=== PATIENT | female | born 1970 | race Caucasian/White ===

== ENCOUNTER 2020-12-06 09:56 | Outpatient (REF) | payer SELFPAY ==
[2020-12-06 11:23] LABS: MANUAL DIFF FLAG NO
[2020-12-06 11:32] LABS: Basophils Absolute Auto 0.1 X10*3/uL (0.0-0.2); Basophils Percent Auto 1.3 % (0-2); Eosinophils Absolute Auto 0.3 X10*3/uL (0.0-0.4); Eosinophils Percent Auto 6.7 % (0-4); Hematocrit 42.4 % (37-47); Hemoglobin 13.9 g/dl (12.0-16.0); Imm Gran Abs Auto 0.01 X10*3/uL (0.00-0.03); Imm Gran Pct Auto 0.3 % (0.0-0.4); Lymphocytes Absolute Auto 1.6 X10*3/uL (1.2-4.9); Lymphocytes Percent Auto 42.6 % (20-40); Mean Corpuscular HGB Conc 32.8 g/dl (31.0-35.0); Mean Corpuscular Hemoglobin 30.9 pg (27.0-33.0); Mean Corpuscular Volume 94.2 fL (80-98); Mean Platelet Volume 12.6 fL (9.4-12.3); Monocytes Absolute Auto 0.3 X10*3/uL (0.1-1.2); Monocytes Percent Auto 9.1 % (2-11); Neutrophils Absolute Auto 1.5 X10*3/uL (2.0-8.3); Platelet Count 169 X10*3/uL (160-400); Red Cell Distribution Width 11.8 % (11.0-16.0); White Blood Count 3.7 X10*3/uL (4.8-10.8)
[2020-12-06 11:47] LABS: Alanine Aminotransferase 23 U/L (0-31); Albumin Level 4.4 g/dL (3.5-5.0); Alkaline Phosphatase 51 U/L (39-117); Anion Gap 12 (12-20); Aspartate Amino Transferase 25 U/L (5-31); Bilirubin Total 0.4 mg/dL (0.0-1.0); Blood Urea Nitrogen 23 mg/dL (9-16); Calcium 9.3 mg/dL (8.4-10.2); Carbon Dioxide 30 mmol/L (22-29); Chloride 103 mmol/L (96-108); Cholesterol 249 mg/dL; Estimated Glomerular Filt Rate > 60; Glucose Fasting 101 mg/dL (60-99); HDL Cholesterol 77 mg/dL; LDL Cholesterol Calculated 162 mg/dl; Sodium 140 mmol/L (135-145); Total Protein 7.3 g/dL (6.5-8.0); Triglycerides 52 mg/dL
[2020-12-06 12:11] LABS: TSH reflex Free T4 1.09 mIU/mL (0.32-4.0); Vitamin D 25-OH Total 47.1 ng/mL (>30)
== END 2020-12-06 09:57 | disposition home or self-care (01) ==
LOC: HO.HMGCLDS 09:56
PROVIDERS: PCP Internal Medicine; Visit Provider Internal Medicine
DX: Z00.00 Encounter for general adult medical examination without abnormal findings (principal); D12.6 Benign neoplasm of colon, unspecified; Z78.0 Asymptomatic menopausal state
CPT/HCPCS: 36415; 80053; 80061; 82306; 84443; 85025

== ENCOUNTER → 2021-01-03 10:48 | Outpatient (BNVA) | payer BC, SELFPAY | PROVIDERS: PCP Internal Medicine; Visit Provider Advanced Practice Midwife ==

== ENCOUNTER 2021-06-04 14:16 | Outpatient (REF) | payer BC, SELFPAY ==
--- NOTE | ~2021-06-04 | MM_ITS ---
EXAMINATION: MM SCREENING DIGITAL BREAST TOMOSYNTHESIS, BILATERAL CLINICAL INFORMATION: Screening. Asymptomatic. COMPARISON: Mammography: This study is compared with prior exams dating back to 2019. TECHNIQUE: Digital breast tomosynthesis is performed in both the craniocaudal and mediolateral oblique views along with computer-aided detection (CAD). Synthesized 2D images are generated from the tomosynthesis. FINDINGS: The breasts are heterogeneously dense, which may obscure small masses (ACR BI-RADS breast composition Category c). There are no significant masses, abnormal calcifications, or other abnormalities. MM/MM tomosynthesis screening BI IMPRESSION: No mammographic evidence of malignancy. ASSESSMENT: BI-RADS BI-RADS 1 - Negative RECOMMENDATION: Routine annual mammography screening. 1 year F/U This examination should not preclude the clinical evaluation of a suspicious palpable abnormality. This patient's information was entered into a reminder system with a target due date for their next mammogram. Electronically signed by: Maria Isabel Smith MD 07/22/2024 03:53 PM EDT
--- NOTE | ~2021-06-04 | MM_ITS ---
EXAMINATION: MM SCREENING DIGITAL BREAST TOMOSYNTHESIS, BILATERAL CLINICAL INFORMATION: Screening. Asymptomatic. The lifetime risk of breast cancer based on the Tyrer-Cuzick Model is 11%. COMPARISON: Mammography: 05/04/2020, 04/28/2019, 04/21/2018 TECHNIQUE: Digital breast tomosynthesis is performed in both the craniocaudal and mediolateral oblique views along with computer-aided detection (CAD). Synthesized 2D images are generated from the tomosynthesis. FINDINGS: There are scattered areas of fibroglandular density (ACR BI-RADS breast composition Category b). There are no significant masses, abnormal calcifications, or other abnormalities. There are scattered punctate calcifications again noted in both breasts. The axilla and skin contours are unremarkable. No developing density. No significant changes. MM/MM tomosynthesis screening BI IMPRESSION: No mammographic evidence of malignancy. ASSESSMENT: BI-RADS 2: Benign RECOMMENDATION: Routine annual mammography screening. This patient's information was entered into a reminder system with a target due date for their next mammogram.
== END 2021-06-04 14:17 | disposition home or self-care (01) ==
LOC: HO.MAMMO 14:16
PROVIDERS: Visit Provider Internal Medicine
DX: Z12.31 Encounter for screening mammogram for malignant neoplasm of breast (principal)
CPT/HCPCS: 77063; 77067

== ENCOUNTER 2021-06-06 15:35 | Outpatient (REF) | payer BC, SELFPAY ==
--- NOTE | ~2021-06-06 | XR_ITS ---
EXAMINATION: XR FOOT, RIGHT CLINICAL INFORMATION: M79.89 - Other specified soft tissue disorders COMPARISON: None TECHNIQUE: AP, lateral, and oblique views of the right foot. FINDINGS: There is no visible acute or healing fracture, dislocation, destructive process. Bony mineralization appears normal. There is no focal joint narrowing or erosive change. Suspect incidental ossicle at tarsometatarsal region lateral view with fine corticated margins. AP view demonstrates a valgus of approximately 30 degrees with mild medial bunion. There is bifid medial sesamoid. XR/XR foot RT min 3V IMPRESSION: 1. No acute or healing fracture, dislocation, or arthropathy. 2. Hallux valgus first MTP. Medial bunion.
== END 2021-06-06 15:36 | disposition home or self-care (01) ==
LOC: HO.HMGCX 15:35
PROVIDERS: PCP Internal Medicine; Visit Provider Nurse Practitioner Family
DX: M79.89 Other specified soft tissue disorders (principal)
CPT/HCPCS: 73630

== ENCOUNTER 2021-07-23 16:01 | Emergency (ER) | payer BC, SELFPAY ==
--- NOTE | ~2021-07-23 | XR_ITS ---
EXAMINATION: XR FOOT, RIGHT CLINICAL INFORMATION: Swelling of great toe COMPARISON: 06/06/2021 TECHNIQUE: AP, lateral, and oblique views of the right foot. FINDINGS: Bones are in normal anatomic alignment with no acute fracture or dislocation. Mild degenerative changes at the first MTP joint similar to the 06/06/2021 study. No acute fracture or dislocation. Prominent soft tissue swelling along the dorsal aspect of the forefoot. XR/XR foot RT 2V IMPRESSION: Prominent soft tissue swelling along the dorsal aspect of the forefoot but no definitive acute fracture or dislocation.
[2021-07-23 16:54] VITALS: BP 146/72; PULSE 75; RESP 20; TEMP 37.1; O2SAT 100; BMI 27.3
--- NOTE | 2021-07-23 18:33 | ED.SKABFB ---
HPI - Skin/Abscess/Foreign Bdy General Chief complaint: Skin/Abscess/Foreign Body Stated complaint: foot infection Time Seen by Provider: 07/23/21 18:33 Source: patient Mode of arrival: ambulatory Limitations: no limitations History of Present Illness HPI narrative: Patient with no significant past medical history notice redness and swelling of the rightfoot started from the left greater toe 3 - 4 days ago , had small pimple about 6 weeks ago but for last 3 days it has increased in size with increased redness spreading to the dorsum of the left foot also patient had low-grade fever at home. No calf pain no history of cellulitis in that area before no open wounds no pain in the toenail. Patient to chloroquine and Ivermactin as prophylaxis for COVID in last 2 days Related Data Home Medications Medication Instructions Recorded Confirmed B-complex with vitamin C 1 tab PO DAILY 12/06/20 ascorbic acid (vitamin C) 500 mg mg PO 12/06/20 capsule cholecalciferol (vitamin D3) 50 50 mcg PO DAILY 12/06/20 mcg (2,000 unit) capsule loratadine 10 mg tablet (Claritin) 10 mg PO DAILY 12/06/20 magnesium 250 mg tablet 250 mg PO DAILY 12/06/20 melatonin 5 mg capsule mg PO 12/06/20 multivitamin 1 tab PO DAILY 12/06/20 Previous Rx's Medication Instructions Recorded cephalexin 500 mg capsule 500 mg PO QID 10 Days #40 cap 07/23/21 doxycycline hyclate 100 mg tablet 100 mg PO BID #20 tab 07/23/21 Allergies Allergy/AdvReac Type Severity Reaction Status Date / Time raw peas Allergy Unknown hives Uncoded 05/15/20 00:00 Review of Systems Review of Systems: Yes all other systems are reviewed and are negative [facility] Past Medical History Medical History Tubular adenoma of colon Uterine fibroid Surgical History Colon polyps History of oral surgery Hx of colonoscopy Family History Family History Father High cholesterol Myocardial infarction Mother Non-melanoma skin cancer High cholesterol Brother Schizophrenia Maternal Grandfather Myocardial infarction Daughter No problems noted. Daughter No problems noted. Daughter No problems noted. Social History Social History Alcohol intake: never Patient Tobacco Use Status: Never used Tobacco Use of substances other than those prescribed or required for medical reasons: No Advance Directives: No Advance Directives Information Provided: No Physical Exam Vital Signs: Vital Signs: Last Vital Signs Temp 98.1 F 07/23/21 20:08 Pulse 58 07/23/21 20:08 Resp 18 07/23/21 20:08 BP 122/71 07/23/21 20:08 Pulse Ox 100 07/23/21 20:08 Body Mass Index 27.3 Const: General: well developed and alert Orientation/consciousness: patient oriented x3 HENMT: Head: Yes normocephalic Eyes: General: appearance normal, both eyes and all related structures Neck: Neck: Yes full ROM Resp: Effort & Inspection: normal respiratory effort Auscultation: clear to auscultation bilaterally Cardio: Palpation: normal PMI Rate: regular rate Rhythm: regular rhythm Heart sounds: S1 normal heart sound present and S2 normal heart sound present Peripheral pulses: Peripheral pulses 2+ throughout GI: Inspection: Yes normal to inspection Palpation (GI): Soft to palpation and nontender Skin: General skin exam: erythema (Left foot) Neuro: General: patient oriented x3 Extrem: Ankle/foot/toe images: 1. Swelling of the greater toe with erythema spreading mother to dorsum neurovascular intact MDM - Skin/Abscess/Foreign Bdy MDM Narrative Medical decision making narrative: Patient has cellulitis of right foot without any skin breakdown x-ray negative for any deep infection will discharge patient home on doxycycline and cephalexin patient received IV Ancef in the ER Differential Diagnosis Differential diagnosis: Likely cellulitis Lab Data Attestation: I reviewed the patient's lab results. Result diagrams: 07/23/21 19:06 07/23/21 19:06 Labs: Lab Results 07/23/21 07/23/21 07/23/21 Range/Units 19:06 19:06 19:06 WBC 4.4 L (4.8-10.8) X10*3/uL RBC 4.45 (4.20-5.50) X10*6/uL Hgb 14.0 (12.0-16.0) g/dl Hct 41.5 (37-47) % MCV 93.3 (80-98) fL MCH 31.5 (27.0-33.0) pg MCHC 33.7 (31.0-35.0) g/dl RDW 12.2 (11.0-16.0) % Plt Count 177 (160-400) X10*3/uL MPV 10.9 (9.4-12.3) fL Immature Gran % (Auto) 0.2 (0.0-0.4) % Neut % (Auto) 53.1 (45-73) % Lymph % (Auto) 29.3 (20-40) % Turner % (Auto) 9.6 (2-11) % Eos % (Auto) 7.1 H (0-4) % Baso % (Auto) 0.7 (0-2) % Lymph # (Auto) 1.3 (1.2-4.9) X10*3/uL Turner # (Auto) 0.4 (0.1-1.2) X10*3/uL Eos # (Auto) 0.3 (0.0-0.4) X10*3/uL Baso # (Auto) 0.0 (0.0-0.2) X10*3/uL Abs Immat Gran (auto) 0.01 (0.00-0.03) X10*3/uL Absolute Neuts (auto) 2.3 (2.0-8.3) X10*3/uL Absolute Nucleated RBC 0.000 (0.0-0.012) X10*3/uL Nucleated RBC % (auto) 0.0 (0.0-0.2) /100WBC Sodium 142 (135-145) mmol/L Potassium 4.2 (3.3-5.1) mmol/L Chloride 104 (96-108) mmol/L Carbon Dioxide 30 H (22-29) mmol/L Anion Gap 12 (12-20) BUN 16 (9-16) mg/dL Creatinine 0.88 (0.5-1.4) mg/dL Estim Creat Clear Calc 73.6 Estimated GFR > 60 Random Glucose 97 (60-115) mg/dL Lactic Acid 0.9 (0.5-2.0) mmol/L Uric Acid (2.4-5.7) mg/dL Calcium 9.7 (8.4-10.2) mg/dL 07/23/21 Range/Units 19:06 WBC (4.8-10.8) X10*3/uL RBC (4.20-5.50) X10*6/uL Hgb (12.0-16.0) g/dl Hct (37-47) % MCV (80-98) fL MCH (27.0-33.0) pg MCHC (31.0-35.0) g/dl RDW (11.0-16.0) % Plt Count (160-400) X10*3/uL MPV (9.4-12.3) fL Immature Gran % (Auto) (0.0-0.4) % Neut % (Auto) (45-73) % Lymph % (Auto) (20-40) % Turner % (Auto) (2-11) % Eos % (Auto) (0-4) % Baso % (Auto) (0-2) % Lymph # (Auto) (1.2-4.9) X10*3/uL Turner # (Auto) (0.1-1.2) X10*3/uL Eos # (Auto) (0.0-0.4) X10*3/uL Baso # (Auto) (0.0-0.2) X10*3/uL Abs Immat Gran (auto) (0.00-0.03) X10*3/uL Absolute Neuts (auto) (2.0-8.3) X10*3/uL Absolute Nucleated RBC (0.0-0.012) X10*3/uL Nucleated RBC % (auto) (0.0-0.2) /100WBC Sodium (135-145) mmol/L Potassium (3.3-5.1) mmol/L Chloride (96-108) mmol/L Carbon Dioxide (22-29) mmol/L Anion Gap (12-20) BUN (9-16) mg/dL Creatinine (0.5-1.4) mg/dL Estim Creat Clear Calc Estimated GFR Random Glucose (60-115) mg/dL Lactic Acid (0.5-2.0) mmol/L Uric Acid 2.7 (2.4-5.7) mg/dL Calcium (8.4-10.2) mg/dL Discharge Plan Discharge Clinical Impression: Cellulitis of foot, right Patient Disposition: Home, Self-Care Instructions: Cellulitis (ED) Additional Instructions: Take antibiotic as prescribed Keep the foot elevated Report to the ER/PCP if worsening of the redness/fever Prescriptions: New cephalexin 500 mg capsule 500 mg PO QID 10 Days Qty: 40 RF: 0 doxycycline hyclate 100 mg tablet 100 mg PO BID Qty: 20 RF: 0 No Action loratadine [Claritin] 10 mg tablet 10 mg PO DAILY RF: 0 B-complex with vitamin C Tablet 1 tab PO DAILY RF: 0 ascorbic acid (vitamin C) 500 mg capsule PO RF: 0 multivitamin Tablet 1 tab PO DAILY RF: 0 cholecalciferol (vitamin D3) 50 mcg (2,000 unit) capsule 50 mcg PO DAILY RF: 0 melatonin 5 mg capsule PO RF: 0 magnesium 250 mg tablet 250 mg PO DAILY RF: 0
[2021-07-23 18:38] VITALS: BP 130/77; PULSE 66; RESP 16; O2SAT 98
[2021-07-23 19:14] LABS: Basophils Percent Auto 0.7 % (0-2); Eosinophils Absolute Auto 0.3 X10*3/uL (0.0-0.4); Eosinophils Percent Auto 7.1 % (0-4); Hematocrit 41.5 % (37-47); Imm Gran Abs Auto 0.01 X10*3/uL (0.00-0.03); Imm Gran Pct Auto 0.2 % (0.0-0.4); Lymphocytes Absolute Auto 1.3 X10*3/uL (1.2-4.9); Lymphocytes Percent Auto 29.3 % (20-40); MANUAL DIFF FLAG NO; Mean Corpuscular HGB Conc 33.7 g/dl (31.0-35.0); Mean Corpuscular Hemoglobin 31.5 pg (27.0-33.0); Mean Corpuscular Volume 93.3 fL (80-98); Mean Platelet Volume 10.9 fL (9.4-12.3); Monocytes Absolute Auto 0.4 X10*3/uL (0.1-1.2); Monocytes Percent Auto 9.6 % (2-11); Neutrophils Absolute Auto 2.3 X10*3/uL (2.0-8.3); Neutrophils Percent Auto 53.1 % (45-73); Platelet Count 177 X10*3/uL (160-400); Red Blood Count 4.45 X10*6/uL (4.20-5.50); Red Cell Distribution Width 12.2 % (11.0-16.0); White Blood Count 4.4 X10*3/uL (4.8-10.8)
[2021-07-23 19:22] LABS: Lactic Acid 0.9 mmol/L (0.5-2.0)
[2021-07-23 19:29] LABS: Anion Gap 12 (12-20); Blood Urea Nitrogen 16 mg/dL (9-16); Calcium 9.7 mg/dL (8.4-10.2); Carbon Dioxide 30 mmol/L (22-29); Chloride 104 mmol/L (96-108); Creatinine Clr Calc Pharmacy 73.6; Estimated Glomerular Filt Rate > 60; Glucose Random 97 mg/dL (60-115); Potassium 4.2 mmol/L (3.3-5.1); Sodium 142 mmol/L (135-145)
[2021-07-23 19:30] LABS: Uric Acid 2.7 mg/dL (2.4-5.7)
[2021-07-23 20:08] VITALS: BP 122/71; PULSE 58; RESP 18; TEMP 36.7; O2SAT 100
== END 2021-07-23 21:27 | disposition home or self-care (01) ==
PROVIDERS: Emergency Provider Internal Medicine; PCP Internal Medicine
DX: L03.115 Cellulitis of right lower limb (principal)
CPT/HCPCS: 36415; 73620; 80048; 83605; 84550; 85025; 87040; 87076; 87185; 87205; 96365; 99284; J0690

== ENCOUNTER 2021-08-04 06:00 | Emergency (ER) | payer BC, SELFPAY ==
[2021-08-04 06:06] VITALS: BP 140/73; PULSE 70; RESP 18; TEMP 36.1; O2SAT 100; BMI 27.4
--- NOTE | 2021-08-04 06:37 | ED_ITS ---
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) Symptoms since prior visit: improved Context: called for positive culture result Associated symptoms: none Treatments prior to arrival: given antibiotics on (07/23 cephalexin, doxy) Related Data Home Medications Medication Instructions Recorded Confirmed B-complex with vitamin C 1 tab PO DAILY 12/06/20 07/26/21 ascorbic acid (vitamin C) 500 mg mg PO 12/06/20 07/26/21 capsule loratadine 10 mg tablet (Claritin) 10 mg PO DAILY 12/06/20 07/26/21 magnesium 250 mg tablet 250 mg PO DAILY 12/06/20 07/26/21 melatonin 5 mg capsule mg PO 12/06/20 07/26/21 multivitamin 1 tab PO DAILY 12/06/20 07/26/21 cholecalciferol (vitamin D3) 50 100 mcg PO DAILY cap 07/26/21 07/26/21 mcg (2,000 unit) capsule Previous Rx's Medication Instructions Recorded cephalexin 500 mg capsule 500 mg PO QID 10 Days #40 cap 07/23/21 doxycycline hyclate 100 mg tablet 100 mg PO BID #20 tab 07/23/21 metronidazole 500 mg tablet 500 mg PO BID 7 Days #14 tab 08/04/21 (Flagyl) Allergies Allergy/AdvReac Type Severity Reaction Status Date / Time raw peas Allergy Unknown hives Uncoded 05/15/20 00:00 Review of Systems Review of Systems: Constitutional : No Weight loss, No Fever, No Chills, No Fatigue, No Malaise ENT/Mouth : No sore throat, No Rhinorrhea Eyes: No Eye Pain, No Swelling, No Redness Cardiovascular : No Chest Pain, No SOB, No Dyspnea on Exertion, No Orthopnea, No Edema, No Palpitations Respiratory : No Cough, No Sputum, No Wheezing Gastrointestinal : No Nausea, No Vomiting, No Diarrhea, No Constipation, No abdominal Pain, No Hematochezia, No Melena Genitourinary : No Dysuria, No Urinary Frequency, No Hematuria, Musculoskeletal : No joint pain, No Myalgias, No Joint Swelling Skin : No Skin Lesions, mild faint red rash Neuro : No Weakness, No Numbness, No Dizziness, No Headache Psych : No Anxiety/Panic, No Depression Heme/Lymph: No Bruising, No Bleeding,No Lymphadenopathy Endocrine : No Polyuria, No Polydipsia All other systems reviewed and are negative PMFSH Past Medical History Attestation statement: The following information was validated with the patient. Medical History History of onychomycosis Tubular adenoma of colon Uterine fibroid Surgical History Colon polyps History of oral surgery Hx of colonoscopy Family History Family History Father High cholesterol Myocardial infarction Mother Non-melanoma skin cancer High cholesterol Brother Schizophrenia Maternal Grandfather Myocardial infarction Daughter No problems noted. Daughter No problems noted. Daughter No problems noted. Unknown No problems noted. Social History Social History Housing: House Alcohol intake: never Patient Tobacco Use Status: Never used Tobacco Advance Directives: No Patient : No service: No Current occupational status: employed Physical Exam Vital Signs: Vital Signs: Last Vital Signs Temp 96.9 F 08/04/21 06:06 Pulse 70 08/04/21 06:06 Resp 18 08/04/21 06:06 BP 140/73 H 08/04/21 06:06 Pulse Ox 100 08/04/21 06:06 Body Mass Index 27.4 Appearance: Alert. Oriented X3. No acute distress. Eyes: Pupils equal, round and reactive to light. ENT: Pharynx normal. Neck: Normal inspection. Neck supple. CVS: Normal heart rate and rhythm. Pulses normal. Respiratory: No respiratory distress. Breath sounds normal. Abdomen: Soft and non-tender. Skin: Skin warm and dry. Normal skin color. R foot slight pink color no warmth no ttp, mild swelling top of great toe and into top of 1st MTP but no pain Extremities: No lower extremity edema. Neuro: Oriented X 3. No motor deficit. No sensory deficit. 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 Her culture is 12 days out. 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
[2021-08-04 07:01] LABS: Basophils Percent Auto 1.3 % (0-2); Eosinophils Absolute Auto 0.3 X10*3/uL (0.0-0.4); Eosinophils Percent Auto 9.7 % (0-4); Hematocrit 36.9 % (37-47); Hemoglobin 12.8 g/dl (12.0-16.0); Lymphocytes Absolute Auto 1.6 X10*3/uL (1.2-4.9); Lymphocytes Percent Auto 50.2 % (20-40); MANUAL DIFF FLAG SCAN; Mean Corpuscular HGB Conc 34.7 g/dl (31.0-35.0); Mean Corpuscular Hemoglobin 31.4 pg (27.0-33.0); Mean Corpuscular Volume 90.4 fL (80-98); Mean Platelet Volume 11.3 fL (9.4-12.3); Monocytes Absolute Auto 0.3 X10*3/uL (0.1-1.2); Monocytes Percent Auto 8.4 % (2-11); Neutrophils Absolute Auto 0.9 X10*3/uL (2.0-8.3); Neutrophils Percent Auto 30.4 % (45-73); Platelet Count 217 X10*3/uL (160-400); Red Blood Count 4.08 X10*6/uL (4.20-5.50); Red Cell Distribution Width 11.9 % (11.0-16.0); SCAN SMEAR FLAG 1; White Blood Count 3.1 X10*3/uL (4.8-10.8)
[2021-08-04 07:21] LABS: Anion Gap 10 (12-20); Blood Urea Nitrogen 16 mg/dL (9-16); Calcium 9.3 mg/dL (8.4-10.2); Carbon Dioxide 28 mmol/L (22-29); Chloride 106 mmol/L (96-108); Creatinine Clr Calc Pharmacy 75.5; Estimated Glomerular Filt Rate > 60; Glucose Random 107 mg/dL (60-115); Potassium 4.2 mmol/L (3.3-5.1); Sodium 140 mmol/L (135-145)
[2021-08-04] MEDS: metroNIDAZOLE 500 MG TABLET PO (07:30)
[2021-08-04 07:46] LABS: SLIDE REVIEW VERIFIED
== END 2021-08-04 07:36 | disposition home or self-care (01) ==
PROVIDERS: Emergency Provider Emergency Medicine; PCP Internal Medicine
DX: L03.115 Cellulitis of right lower limb (principal); R79.89 Other specified abnormal findings of blood chemistry; Z79.899 Other long term (current) drug therapy
CPT/HCPCS: 36415; 80048; 85025; 87040; 99283; 99284

== ENCOUNTER → 2022-01-10 08:01 | Outpatient (BNVA) | payer BC, SELFPAY | PROVIDERS: PCP Internal Medicine; Visit Provider Advanced Practice Midwife ==

== ENCOUNTER 2022-06-10 08:12 | Outpatient (REF) | payer BC, SELFPAY ==
--- NOTE | ~2022-06-10 | MM_ITS ---
EXAMINATION: MM SCREENING DIGITAL BREAST TOMOSYNTHESIS, BILATERAL CLINICAL INFORMATION: Screening. Asymptomatic. The lifetime risk of breast cancer based on the Tyrer-Cuzick Model is 11%. COMPARISON: Mammography: 06/04/2021, 05/04/2020, 04/28/2019 TECHNIQUE: Digital breast tomosynthesis is performed in both the craniocaudal and mediolateral oblique views along with computer-aided detection (CAD). Synthesized 2D images are generated from the tomosynthesis. FINDINGS: There are scattered areas of fibroglandular density (ACR BI-RADS breast composition Category b). There are scattered punctate calcifications and some coarse or round calcifications again seen in both breasts similar in number and distribution, predominantly upper outer quadrants. The axilla and skin contours are unremarkable. Left breast shows no interval mass or architectural abnormality or developing density. Right CC tomography shows scalloping asymmetric density under 1 cm outer quadrant 5 cm from nipple without MLO correlate. This may suggest incompletely compressed glandular tissue or summation artifact. Patient will be recalled for additional imaging. MM/MM tomosynthesis screening BI IMPRESSION: Right: -Asymmetric density on right CC tomography outer quadrant without MLO correlate, possibly completely compressed glandular tissue or summation artifact. Left: -No mammographic evidence of malignancy. ASSESSMENT: BI-RADS 0: Incomplete - Need Additional Imaging Evaluation RECOMMENDATION: 1. Additional views of the right breast (spot CC, rolled CC x2). 2. Targeted ultrasound if warranted after review of the additional views. 3. Radiology department staff will contact the patient for additional imaging. This patient's information was entered into a reminder system with a target due date for their next mammogram.
== END 2022-06-10 08:13 | disposition home or self-care (01) ==
LOC: HO.MAMMO 08:12
PROVIDERS: PCP Internal Medicine; Visit Provider Internal Medicine
DX: Z12.31 Encounter for screening mammogram for malignant neoplasm of breast (principal)
CPT/HCPCS: 77063; 77067

== ENCOUNTER 2022-06-18 15:03 | Outpatient (REF) | payer BC, SELFPAY ==
--- NOTE | ~2022-06-18 | MM_ITS ---
EXAMINATION: MM DIAGNOSTIC DIGITAL BREAST TOMOSYNTHESIS, RIGHT CLINICAL INFORMATION: Recall from screening for asymmetric density outer breast on CC view, suspect incompletely compressed glandular tissue or summation artifact. COMPARISON: Mammography: 06/10/2022, 06/04/2021, 07/04/2020, 04/28/2019 TECHNIQUE: Digital breast tomosynthesis is performed. 2D images are generated from the tomosynthesis. The following views are obtained: Spot CC, rolled CC x2. FINDINGS: There are scattered areas of fibroglandular density (ACR BI-RADS breast composition Category b). The additional views show no persistent asymmetric density. There is no mass or architectural abnormality in the targeted area. Results are discussed with the patient at time of visit. MM/MM tomosynthesis added views R IMPRESSION: Additional views show no persistent asymmetric density or other changes from prior studies. ASSESSMENT: BI-RADS 1: Negative RECOMMENDATION: Routine annual mammography screening. This patient's information was entered into a reminder system with a target due date for their next mammogram.
== END 2022-06-18 15:04 | disposition home or self-care (01) ==
LOC: HO.MAMMO 15:03
PROVIDERS: PCP Internal Medicine; Visit Provider Internal Medicine
DX: R92.2 Inconclusive mammogram (principal)
CPT/HCPCS: 77061; 77065

== ENCOUNTER 2022-10-15 08:57 | Outpatient (REF) | payer BC, SELFPAY ==
[2022-10-15 11:36] LABS: MANUAL DIFF FLAG NO
[2022-10-15 11:55] LABS: Basophils Absolute Auto 0.1 X10*3/uL (0.0-0.2); Basophils Percent Auto 1.2 % (0-2); Eosinophils Absolute Auto 0.2 X10*3/uL (0.0-0.4); Eosinophils Percent Auto 5.2 % (0-4); Hematocrit 41.9 % (37.0-47.0); Hemoglobin 13.8 g/dl (12.0-16.0); Imm Gran Abs Auto 0.01 X10*3/uL (0.00-0.03); Imm Gran Pct Auto 0.2 % (0.0-0.4); Lymphocytes Absolute Auto 1.4 X10*3/uL (1.2-4.9); Lymphocytes Percent Auto 32.8 % (20-40); Mean Corpuscular HGB Conc 32.9 g/dl (31.0-35.0); Mean Corpuscular Hemoglobin 30.7 pg (27.0-33.0); Mean Corpuscular Volume 93.3 fL (80.0-98.0); Mean Platelet Volume 12.4 fL (9.4-12.3); Monocytes Absolute Auto 0.3 X10*3/uL (0.1-1.2); Monocytes Percent Auto 6.4 % (2-11); Neutrophils Absolute Auto 2.3 x10*3/uL (2.0-8.3); Neutrophils Percent Auto 54.2 % (45-73); Platelet Count 199 X10*3/uL (160-400); Red Blood Count 4.49 X10*6/uL (4.20-5.50); White Blood Count 4.2 X10*3/uL (4.8-10.8)
[2022-10-15 12:26] LABS: Alanine Aminotransferase 17 U/L (0-31); Anion Gap 14 (12-20); Aspartate Amino Transferase 23 U/L (5-31); Blood Urea Nitrogen 24 mg/dL (9-16); Calcium 9.7 mg/dL (8.4-10.2); Carbon Dioxide 28 mmol/L (22-29); Chloride 105 mmol/L (96-108); Estimated Glomerular Filt Rate > 60; Glucose Fasting 94 mg/dL (60-99); Magnesium 2.3 mg/dL (1.6-2.6); Potassium 4.7 mmol/L (3.3-5.1); Sodium 142 mmol/L (135-145)
[2022-10-15 12:33] LABS: TSH reflex Free T4 1.13 uIU/mL (0.32-4.0); Vitamin D 25-OH Total 60.7 ng/mL (>30)
[2022-10-15 15:41] LABS: Vitamin B12 654 pg/mL (200-900)
[2022-10-15 15:51] LABS: Folate 11.6 ng/mL (> or = 4.0)
== END 2022-10-15 08:58 | disposition home or self-care (01) ==
LOC: HO.HMGCLDS 08:57
PROVIDERS: PCP Internal Medicine; Visit Provider Internal Medicine
DX: Z00.01 Encounter for general adult medical examination with abnormal findings (principal); D12.6 Benign neoplasm of colon, unspecified; R00.2 Palpitations
CPT/HCPCS: 36415; 80048; 82306; 82607; 82746; 83735; 84443; 84450; 84460; 85025

== ENCOUNTER → 2022-11-12 10:31 | Outpatient (BNVA) | payer BC, SELFPAY | PROVIDERS: PCP Internal Medicine; Visit Provider Nurse Practitioner | DX: D12.6 Benign neoplasm of colon, unspecified (principal) ==

== ENCOUNTER 2022-12-13 02:25 | Emergency (ER) | payer BC, SELFPAY ==
[2022-12-13 02:31] VITALS: BP 134/71; PULSE 76; RESP 18; TEMP 36.5; O2SAT 100; BMI 27.8
--- NOTE | 2022-12-13 02:46 | ED_ITS ---
HPI - Extremity Problem General Chief complaint: Extremity Problem Stated complaint: Toe Infection Time Seen by Provider: 12/13/22 02:44 Source: patient Mode of arrival: ambulatory Limitations: no limitations History of Present Illness HPI Narrative: Patient complaining of redness and warmth of the right greater toe since last night history of same 1 year ago when she was diagnosed cellulitis no recent pedicure no fever no chills patient not IV headache no open wound no joint pain no history of gout Related Data Home Medications Medication Instructions Recorded Confirmed B-complex with vitamin C 1 tab PO DAILY 12/06/20 07/26/21 ascorbic acid (vitamin C) 500 mg mg PO 12/06/20 07/26/21 capsule magnesium 250 mg tablet 250 mg PO DAILY 12/06/20 07/26/21 cholecalciferol (vitamin D3) 50 100 mcg PO DAILY 07/26/21 07/26/21 mcg (2,000 unit) capsule turmeric 400 mg capsule mg PO 01/10/22 loratadine 10 mg tablet (Claritin) 10 mg PO DAILY PRN 11/12/22 magnesium chloride 70 mg 250 mg PO DAILY 11/12/22 (magnesium chloride) tablet,delayed release quercetin 500 mg capsule 500 mg PO DAILY PRN 11/12/22 Previous Rx's Medication Instructions Recorded bisacodyl 5 mg tablet,delayed 10 mg PO ONCE 1 day #2 tabs 10/23/22 release (Dulcolax (bisacodyl)) polyethylene glycol 3350 17 238 g PO ONCE 1 day #238 grams 10/23/22 gram/dose oral powder (Miralax) cephalexin 500 mg capsule 500 mg PO QID 10 days #40 caps 12/13/22 doxycycline hyclate 100 mg tablet 100 mg PO BID #20 tabs 12/13/22 Allergies Allergy/AdvReac Type Severity Reaction Status Date / Time raw peas Allergy Unknown hives Uncoded 10/15/22 08:35 Review of Systems Review of Systems: Yes all other systems are reviewed and are negative PMFSH Past Medical History Medical History History of onychomycosis Immunization refused Tubular adenoma of colon Uterine fibroid Surgical History History of oral surgery Hx of colonoscopy Family History Family History Father High cholesterol Myocardial infarction Mother Non-melanoma skin cancer High cholesterol Brother Schizophrenia Maternal Grandfather Myocardial infarction Daughter No problems noted. Daughter No problems noted. Daughter No problems noted. Unknown No problems noted. Social History Social History Housing: House Alcohol intake: never Patient Tobacco Use Status: Never used Tobacco e-Cigarette/Vaping Use: Never Used Advance Directives: No Advance Directives Information Provided: No service: No Current occupational status: employed Cognitive needs: No Hearing needs: No Vision needs: Yes Physical Exam Vital Signs: Vital Signs: Last Vital Signs Temp 97.7 F 12/13/22 02:31 Pulse 76 12/13/22 02:31 Resp 18 12/13/22 02:31 BP 134/71 12/13/22 02:31 Pulse Ox 100 12/13/22 02:31 O2 Del Method 12/13/22 02:31 BMI result Body Mass Index 27.8 Extrem: Ankle/foot/toe images: 1. Erythema warmth of right greater toe spreading to the dorsum of the foot no open wound Medications Administered Discontinued Medications Generic Name Dose Route Start Last Admin Trade Name Freq PRN Reason Stop Dose Admin Cephalexin HCl 500 mg 12/13/22 02:54 12/13/22 02:59 Cephalexin 500 Mg Capsule PO 12/13/22 02:55 500 mg ONCE ONE Administration Doxycycline Monohydrate 100 mg 12/13/22 02:54 12/13/22 02:59 Doxycycline Monohydrate 100 Mg Capsule PO 12/13/22 02:55 100 mg ONCE ONE Administration Medical Decision Making Medical Decision Making [facility] Narrative: Patient uncomplicated cellulitis of the right greater toe will discharge patient home on doxycycline and Keflex advised to report to the ER if worsening of the redness Discharge Plan Discharge Clinical Impression: Cellulitis Patient Disposition: Home, Self-Care Instructions: Cellulitis (ED) Additional Instructions: Care as advised Take antibiotic as prescribed Report to the ER if redness gets worse/fever/pain Prescriptions: New cephalexin 500 mg capsule 500 mg PO QID 10 Days Qty: 40 0RF doxycycline hyclate 100 mg tablet 100 mg PO BID Qty: 20 0RF No Action bisacodyl [Dulcolax (bisacodyl)] 5 mg tablet,delayed release (DR/EC) 10 mg PO ONCE 1 Days Qty: 2 0RF Rx Instructions: take orally as directed prior to colonoscopy polyethylene glycol 3350 [Miralax] 17 gram/dose powder 238 g PO ONCE 1 Days Qty: 238 0RF Rx Instructions: take orally as directed prior to colonoscopy B-complex with vitamin C Tablet 1 tab PO DAILY ascorbic acid (vitamin C) 500 mg capsule PO magnesium 250 mg tablet 250 mg PO DAILY cholecalciferol (vitamin D3) 50 mcg (2,000 unit) capsule 100 mcg PO DAILY loratadine [Claritin] 10 mg tablet 10 mg PO DAILY PRN turmeric 400 mg capsule PO magnesium chloride 70 mg tablet,delayed release (DR/EC) 250 mg PO DAILY quercetin 500 mg capsule 500 mg PO DAILY PRN Interventions: ED Discharge Assessment Last Done: 12/13/22 03:10 Discharge Date/Time: 12/13/22 03:10
[2022-12-13] MEDS: Doxycycline Monohydrate 100 MG CAPSULE PO (02:59)
[2022-12-13] MEDS: cephALEXin 500 MG CAPSULE PO (02:59)
--- NOTE | 2022-12-13 03:09 | PC.NURSE ---
Pt aox4 in no apparent distress. Discharge instructions reviewed with pt. Pt verbalizes understanding.
== END 2022-12-13 03:10 | disposition home or self-care (01) ==
PROVIDERS: Emergency Provider Internal Medicine; PCP Internal Medicine
DX: L03.031 Cellulitis of right toe (principal)
CPT/HCPCS: 99283

== ENCOUNTER 2022-12-18 14:48 | Emergency (ER) | payer BC, SELFPAY ==
[2022-12-18 14:52] VITALS: BP 102/48; PULSE 96; RESP 18; TEMP 36.6; O2SAT 98; BMI 27.4
--- NOTE | 2022-12-18 14:52 | ED.SKABFB ---
HPI - Skin/Abscess/Foreign Bdy General Chief complaint: General Medical Stated complaint: Cellulitis-not feeling well Time Seen by Provider: 12/18/22 16:51 Source: patient Mode of arrival: ambulatory Limitations: no limitations History of Present Illness HPI narrative: 51-year-old female seen here on December 13 for right foot cellulitis does started on cephalexin and doxycycline returns here to the emergency room with concern for diarrhea, fatigue which began overnight. Patient also reports mild upset stomach. No nausea, vomiting, fever. Patient feels like cellulitis on her foot is actually much better since taking the antibiotics. Related Data Home Medications Medication Instructions Recorded Confirmed B-complex with vitamin C 1 tab PO DAILY 12/06/20 07/26/21 ascorbic acid (vitamin C) 500 mg mg PO 12/06/20 07/26/21 capsule magnesium 250 mg tablet 250 mg PO DAILY 12/06/20 07/26/21 cholecalciferol (vitamin D3) 50 100 mcg PO DAILY 07/26/21 07/26/21 mcg (2,000 unit) capsule turmeric 400 mg capsule mg PO 01/10/22 loratadine 10 mg tablet (Claritin) 10 mg PO DAILY PRN 11/12/22 magnesium chloride 70 mg 250 mg PO DAILY 11/12/22 (magnesium chloride) tablet,delayed release quercetin 500 mg capsule 500 mg PO DAILY PRN 11/12/22 Previous Rx's Medication Instructions Recorded bisacodyl 5 mg tablet,delayed 10 mg PO ONCE 1 day #2 tabs 10/23/22 release (Dulcolax (bisacodyl)) polyethylene glycol 3350 17 238 g PO ONCE 1 day #238 grams 10/23/22 gram/dose oral powder (Miralax) cephalexin 500 mg capsule 500 mg PO QID 10 days #40 caps 12/13/22 doxycycline hyclate 100 mg tablet 100 mg PO BID #20 tabs 12/13/22 Allergies Allergy/AdvReac Type Severity Reaction Status Date / Time raw peas Allergy Unknown hives Uncoded 10/15/22 08:35 Review of Systems Review of Systems: Yes all other systems are reviewed and are negative Constitutional: Constitutional: Reports no additional constitutional complaints, Denies body ache(s), Denies chills, Reports fatigue, Denies fever(s), Denies headache(s) and Denies weakness Eyes: Eyes: Reports no additional eye complaints and Denies change in vision ENT: Reports system reviewed and no additional complaints, except as documented, Denies dizziness, Denies headache(s), Denies nasal congestion, Denies nasal discharge and Denies neck pain Cardiovascular: Cardiovascular: Reports no additional cardiovascular complaints, Denies chest pain, Denies leg edema and Denies dyspnea Respiratory: Respiratory: Reports no additional respiratory complaints, Denies cough and Denies dyspnea Gastrointestinal: Gastrointestinal: Reports no additional gastrointestinal complaints, Denies abdominal pain, Reports diarrhea, Denies nausea and Denies vomiting Genitourinary: Genitourinary: Reports no additional female genitourinary complaints and Denies urinary incontinence Musculoskeletal: Musculoskeletal: Reports no additional musculoskeletal complaints, Denies back pain, Denies arthralgias, Denies joint swelling, Denies neck pain, Denies numbness and Denies tingling Integumentary/Breasts: Skin/Breast: Reports system reviewed and no additional complaints, except as docu and Denies rash Neurologic: Reports system reviewed and no additional complaints, except as documented, Denies Abnormal speech present, Denies dizziness, Denies headache(s), Denies numbness, Denies tingling and Denies weakness Endocrine: Endocrine: Reports fatigue PMFSH Past Medical History Attestation statement: The following information was validated with the patient. Source: old records reviewed and nursing notes reviewed Medical History History of onychomycosis Immunization refused Tubular adenoma of colon Uterine fibroid Surgical History History of oral surgery Hx of colonoscopy Family History Family History Father High cholesterol Myocardial infarction Mother Non-melanoma skin cancer High cholesterol Brother Schizophrenia Maternal Grandfather Myocardial infarction Daughter No problems noted. Daughter No problems noted. Daughter No problems noted. Unknown No problems noted. Social History Social History Housing: House Alcohol intake: never Patient Tobacco Use Status: Never used Tobacco e-Cigarette/Vaping Use: Never Used Advance Directives: No Advance Directives Information Provided: Yes service: No Current occupational status: employed Cognitive needs: No Hearing needs: No Vision needs: Yes Physical Exam Vital Signs: Vital Signs: Last Vital Signs Temp 97.8 F 12/18/22 16:54 Pulse 82 12/18/22 16:54 Resp 18 12/18/22 16:54 BP 110/74 12/18/22 16:54 Pulse Ox 100 12/18/22 16:54 O2 Del Method 12/18/22 16:54 BMI result Body Mass Index 27.4 Const: General: cooperative, healthy appearing, comfortable and no acute distress Orientation/consciousness: patient oriented x3 Limitations: no limitations HEENT: Head: Yes normal to inspection Ears: hearing grossly normal bilaterally General nose exam: Normal external nose present Face and sinus: Yes normal facial exam Mouth: Normal oral and palatal mucosa present Throat: Yes posterior oropharynx normal Eyes: General: appearance normal, both eyes and all related structures Pupils: Equal, round and reactive pupils present Neck: Neck: Yes normal visual inspection Chest: Chest palpation & inspection: normal inspection of the chest Resp: Effort & Inspection: normal respiratory effort Auscultation: clear to auscultation bilaterally Cardio: Rate: regular rate Rhythm: regular rhythm Peripheral pulses: Peripheral pulses 2+ throughout GI: Inspection: Yes normal to inspection Palpation (GI): Soft to palpation and nontender Auscultation: normal bowel sounds Back/Spine/Pelvis: Thoracic/Lumbar Spine: thoracic and lumbar spine normal to inspection Skin: General skin exam: no rashes or lesions noted Neuro: General: patient oriented x3, no focal motor deficits and normal sensation to monofilament Cranial nerves: Yes Equal, round and reactive pupils present Cognition (Neuro): normal cognition Speech: No Abnormal speech present Gait exam (Neuro): Normal gait present Motor exam (neuro): 5/5 motor strength present throughout Extrem: Other: Right foot with normal appearance. No erythema, warmth. Palpable DP and PT pulses normal. Full range of motion. No tenderness. General: Yes normal to inspection, Yes full ROM and Yes capillary refill normal Course Course Course Narrative: This is a rapid medical exam. Deferred additional HPI, ROS, PE to primary provider. 51 yo female currently on cephalexin/doxycycline since 12/13 for right foot infection. Patient reports early this morning had diarrhea, body aches and malaise and has a history of bacteremia and feels this is similar although the wound itself looks better. Afebrile. VSS. Will obtain labs Reevaluation(s) Reevaluation #1: Labs are unremarkable. Patient has some mild diarrhea and upset stomach but is tolerating p.o. fluids with no difficulty. Likely side effects from taking antibiotics. We recommended taking it with food and probiotic at home. Reviewed worrisome signs/symptoms with patient and when to seek additional care. Comfortable with discharge home. Medical Decision Making Medical Decision Making [facility] Narrative: 51-year-old female who is currently on day 7 of antibiotic treatment for right foot cellulitis who presents with diarrhea, upset stomach and fatigue noted overnight. Patient remarks that the right foot appears much better than previous and has been taking the antibiotics as prescribed. On exam no signs of cellulitis. Patient is concern for bacteremia and she has had this before in the past. She denies any fevers or chills. Will repeat labs today. Triage vitals are normal Differential Diagnosis Differential Diagnoses: The differential diagnosis associated with the presentation includes Cellulitis Low concern for bacteremia as patient is afebrile and infection is improving. Patient nontoxic overall Lab Data [facility] Lab Attestation statement: I reviewed the patient's lab results. 12/18/22 15:50 12/18/22 15:50 Labs: Lab Results 12/18/22 12/18/22 Range/Units 15:50 15:50 WBC 6.0 (4.8-10.8) X10*3/uL RBC 4.65 (4.20-5.50) X10*6/uL Hgb 14.3 (12.0-16.0) g/dl Hct 42.9 (37.0-47.0) % MCV 92.3 (80.0-98.0) fL MCH 30.8 (27.0-33.0) pg MCHC 33.3 (31.0-35.0) g/dl RDW 12.3 (11.0-16.0) % Plt Count 169 (160-400) X10*3/uL MPV 11.5 (9.4-12.3) fL Immature Gran % (Auto) 0.3 (0.0-0.4) % Neut % (Auto) 87.9 H (45-73) % Lymph % (Auto) 5.0 L (20-40) % [place] % (Auto) 3.3 (2-11) % Eos % (Auto) 3.2 (0-4) % Baso % (Auto) 0.3 (0-2) % Lymph # (Auto) 0.3 L (1.2-4.9) X10*3/uL [place] # (Auto) 0.2 (0.1-1.2) X10*3/uL Eos # (Auto) 0.2 (0.0-0.4) X10*3/uL Baso # (Auto) 0.0 (0.0-0.2) X10*3/uL Abs Immat Gran (auto) 0.02 (0.00-0.03) X10*3/uL Absolute Neuts (auto) 5.3 (2.0-8.3) x10*3/uL Absolute Nucleated RBC 0.000 (0.0-0.012) X10*3/uL Nucleated RBC % (auto) 0.0 (0.0-0.2) /100WBC Sodium 137 (135-145) mmol/L Potassium 4.1 (3.3-5.1) mmol/L Chloride 105 (96-108) mmol/L Carbon Dioxide 27 (22-29) mmol/L Anion Gap 9 L (12-20) BUN 23 H (9-16) mg/dL Creatinine 0.80 (0.5-1.4) mg/dL Estim Creat Clear Calc 80.2 Estimated GFR > 60 Random Glucose 118 H (60-115) mg/dL Calcium 9.0 D (8.4-10.2) mg/dL Discharge Plan Discharge Clinical Impression: Cellulitis Patient Disposition: Home, Self-Care Instructions: Cellulitis (ED) Additional Instructions: Continue your antibiotics as prescribed Prescriptions: No Action bisacodyl [Dulcolax (bisacodyl)] 5 mg tablet,delayed release (DR/EC) 10 mg PO ONCE 1 Days Qty: 2 0RF Rx Instructions: take orally as directed prior to colonoscopy polyethylene glycol 3350 [Miralax] 17 gram/dose powder 238 g PO ONCE 1 Days Qty: 238 0RF Rx Instructions: take orally as directed prior to colonoscopy cephalexin 500 mg capsule 500 mg PO QID 10 Days Qty: 40 0RF doxycycline hyclate 100 mg tablet 100 mg PO BID Qty: 20 0RF B-complex with vitamin C Tablet 1 tab PO DAILY ascorbic acid (vitamin C) 500 mg capsule PO magnesium 250 mg tablet 250 mg PO DAILY cholecalciferol (vitamin D3) 50 mcg (2,000 unit) capsule 100 mcg PO DAILY loratadine [Claritin] 10 mg tablet 10 mg PO DAILY PRN turmeric 400 mg capsule PO magnesium chloride 70 mg tablet,delayed release (DR/EC) 250 mg PO DAILY quercetin 500 mg capsule 500 mg PO DAILY PRN Referrals: Kenzie Gonzalez MD [Primary Care Provider] - 1 week Interventions: ED Discharge Assessment Last Done: 12/18/22 17:06 Discharge Date/Time: 12/18/22 17:06
[2022-12-18 15:55] LABS: MANUAL DIFF FLAG NO
[2022-12-18 15:57] LABS: Basophils Percent Auto 0.3 % (0-2); Eosinophils Absolute Auto 0.2 X10*3/uL (0.0-0.4); Eosinophils Percent Auto 3.2 % (0-4); Hematocrit 42.9 % (37.0-47.0); Hemoglobin 14.3 g/dl (12.0-16.0); Imm Gran Abs Auto 0.02 X10*3/uL (0.00-0.03); Imm Gran Pct Auto 0.3 % (0.0-0.4); Lymphocytes Absolute Auto 0.3 X10*3/uL (1.2-4.9); Mean Corpuscular HGB Conc 33.3 g/dl (31.0-35.0); Mean Corpuscular Hemoglobin 30.8 pg (27.0-33.0); Mean Corpuscular Volume 92.3 fL (80.0-98.0); Mean Platelet Volume 11.5 fL (9.4-12.3); Monocytes Absolute Auto 0.2 X10*3/uL (0.1-1.2); Monocytes Percent Auto 3.3 % (2-11); Neutrophils Absolute Auto 5.3 x10*3/uL (2.0-8.3); Neutrophils Percent Auto 87.9 % (45-73); Platelet Count 169 X10*3/uL (160-400); Red Blood Count 4.65 X10*6/uL (4.20-5.50); Red Cell Distribution Width 12.3 % (11.0-16.0)
[2022-12-18 16:15] LABS: Anion Gap 9 (12-20); Blood Urea Nitrogen 23 mg/dL (9-16); Carbon Dioxide 27 mmol/L (22-29); Chloride 105 mmol/L (96-108); Creatinine Clr Calc Pharmacy 80.2; Estimated Glomerular Filt Rate > 60; Glucose Random 118 mg/dL (60-115); Potassium 4.1 mmol/L (3.3-5.1); Sodium 137 mmol/L (135-145)
[2022-12-18 16:54] VITALS: BP 110/74; PULSE 82; RESP 18; TEMP 36.6; O2SAT 100
== END 2022-12-18 17:06 | disposition home or self-care (01) ==
LOC: HO.ED 16:58
PROVIDERS: Nurse Practitioner Family; Emergency Provider Emergency Medicine; PCP Internal Medicine
DX: L03.115 Cellulitis of right lower limb (principal); Z79.899 Other long term (current) drug therapy
CPT/HCPCS: 36415; 80048; 85025; 99282; 99283

== ENCOUNTER 2023-02-17 15:45 | Outpatient (REF) | payer BC, SELFPAY ==
[2023-02-21 05:23] LABS: HPV mRNA E6/E7 rflx Not Detected (Not Detected)
== END 2023-02-17 15:46 | disposition home or self-care (01) ==
LOC: HO.LNP 15:45
PROVIDERS: PCP Internal Medicine; Visit Provider Advanced Practice Midwife
DX: Z01.419 Encounter for gynecological examination (general) (routine) without abnormal findings (principal); Z11.51 Encounter for screening for human papillomavirus (HPV); N95.1 Menopausal and female climacteric states
CPT/HCPCS: 87624; 88142

== ENCOUNTER 2023-03-25 09:57 | Day surgery (SDC) | payer BC, SELFPAY ==
[2023-03-20 15:18] VITALS: BMI 28.1
[2023-03-25 10:10] VITALS: BMI 27.8
[2023-03-25 10:31] VITALS: BP 115/64; PULSE 63; RESP 16; TEMP 36.2; O2SAT 99
[2023-03-25] MEDS: Lactated Ringers 1,000 ML 80 ML IVCONT (10:40)
--- NOTE | 2023-03-25 11:01 | MHC.SHP ---
Pre-Procedural Eval Section A Date of Service: 03/25/23 Section B Chief Complaint: Encounter for screening for malignant neoplasm of Relevant Family History (Specify if Yes): No Relevant Social History: None Present Medications: see Short Stay Collaborative assessment Medical History: Significant History (Tubular adenoma Uterine fibroids History of onchyomycosis) History of Previous Operations: Relevant previous surgery/procedure and date(s) (oral surgery) Allergies: Allergies Allergy/AdvReac Type Severity Reaction Status Date / Time raw peas Allergy Mild Hives Uncoded 03/25/23 10:04 Review of Systems Sugical H&P ROS: Negative: Constitution, Cardiovascular, Respiratory, Neurological, Psychiatric, Hem-Onc, Allergic/Immunologic, Gastrointestinal, Genitourinary, Musculoskeletal, Integumentary, Endocrine and Eyes/Ears/Nose/Throat Exam Surgical H&P Exam: Normal: HEENT, Normal: Heart, Normal: Lungs, Normal: Extremities, Normal: Abdomen, Normal: Skin and Normal: Neurological Plan Diagnosis/Plan: Unchanged I have reviewed the history and physical and performed a pertinent physical examination on my patient. No changes have occurred unless specified. Time Spent With Patient Time: Total time managing care of this patient today ____ minutes.
--- NOTE | 2023-03-25 11:26 | P.CONAN_ITS ---
HPI - Anesthesia Eval Consult details Narrative: 52 F for colonscopy [facility] Active Problems Active Problems: All Active Problems (Updated 12/19/22 @ 00:00 by Isaak Abel) Pre-op chest exam (Acute) Immunization refused (Acute) Encounter for annual routine gynecological examination (Acute) Foot swelling (Acute) Tubular adenoma of colon (Acute) Uterine fibroid (Acute) Past Medical History Medical History History of onychomycosis Immunization refused Tubular adenoma of colon Uterine fibroid Family History Family History Father High cholesterol Myocardial infarction Mother Non-melanoma skin cancer High cholesterol Brother Schizophrenia Maternal Grandfather Myocardial infarction Daughter No problems noted. Daughter No problems noted. Daughter No problems noted. Unknown No problems noted. Family history of problems with anesthesia: No Surgical History Surgical History History of oral surgery Hx of colonoscopy History of Problems with Anesthesia: No Social History Social History Housing: House Alcohol intake: never Patient Tobacco Use Status: Former Tobacco user Tobacco use type: Cigarette Years Smoked: 8 Smoked in Last 30 Days: No e-Cigarette/Vaping Use: Never Used Use of substances other than those prescribed or required for medical reasons: No Are you DNR?: No Advance Directives: No Advance Directives Information Provided: Yes service: No Current occupational status: employed Cognitive needs: No Hearing needs: No Vision needs: Yes Meds Allergies Allergy/AdvReac Type Severity Reaction Status Date / Time raw peas Allergy Mild Hives Uncoded 03/25/23 10:04 Active Medications: Current Medications Lactated Ringer's (Lr) 1,000 mls @ 80 mls/hr IVCONT .[id number] [place] Last Admin: 03/25/23 10:40 Dose: 80 mls/hr Home Medications Medication Instructions Recorded Confirmed Last Taken Type ascorbic acid (vitamin C) 500 mg 500 mg PO DAILY 12/06/20 03/20/23 Unknown History capsule magnesium 250 mg tablet 250 mg PO DAILY 12/06/20 03/20/23 Unknown History cholecalciferol (vitamin D3) 50 100 mcg PO DAILY 07/26/21 03/20/23 Unknown History mcg (2,000 unit) capsule loratadine 10 mg tablet (Claritin) 10 mg PO DAILY PRN Allergy Symptoms 11/12/22 03/20/23 Unknown History arginine 7 gram-glutam 7 1 packet PO DAILY 02/17/23 03/20/23 Unknown History gram-CaHMB 1.5 [id number]-min oral pwd pkt (Mike (with collagen)) melatonin 5 mg capsule 5 mg PO BEDTIME 02/17/23 03/20/23 Unknown History multivitamin 1 tab PO DAILY 03/20/23 03/20/23 Unknown History turmeric 1 cap PO DAILY 03/20/23 03/20/23 Unknown History Exam Exam Date and Time: March 25, 2023 112 Height,Weight and Vital Signs: Height 5 ft 4 in Weight 162 lb Last Vital Signs Temp 97.1 F 03/25/23 10:31 Pulse 63 03/25/23 10:31 Resp 16 03/25/23 10:31 BP 115/64 03/25/23 10:31 Pulse Ox 99 03/25/23 10:31 O2 Del Method Room Air 03/25/23 10:31 Airway Mallampati Class: II TM Dist: >3cm Neck ROM: Full Loose/Missing/Broken Teeth: No Assessment and Plan Assessment Anesthesia Assessment: Anesthesia Plan Discussed Final Anesthetic Review Family History of Problems with Anesthesia: No History of Problems with Anesthesia: No NPO: Yes ASA Class: II Final Preanesthetic Review: No Changes in Pt Med Stat, Meds/Allgs Chart Reviewed, Consent Obtained/Reviewed and Anes Risks/Benef Reviewed Patient Risk: Low Procedure Risk: Low Anesthetic Plan Anesthetic Plan: MAC: Disposition: Standard PACU
--- NOTE | 2023-03-25 11:47 | P.OP_ITS ---
Operative Note Operative Note Date of Service: 03/25/23 Narrative: Operative Information Procedure Description: Colonoscopy Indication: hx of polyps Anesthesia: MAC COLONOSCOPY Instrument: Olympus variable stiffness pediatric scope 190L Colonoscopy Monitoring: Vital signs and clinical assessment, continuous EKG monitoring, Pulse oximetry, Carbon Dioxide monitoring and blood pressure monitoring were done throughout the procedure. Colon withdrawal time was 16 minutes. Procedure: The patient was placed in the left lateral decubitis position and pre-procedure medications were administered. After a digital rectal examination of the ano-rectum, the video colonoscope was inserted into the rectum and advanced through the colon to the cecum/TI. The colonoscope was slowly withdrawn in a retrograde panoramic fashion and the colon mucosa was carefully examined including a retroflexed view of the rectum. Findings and interventions are described below. Procedure Difficulty: easy Findings: Terminal Ileum-normal Cecum: right over appendiceal orifice there was a polypoid lesion 6-8 mm, lifted with eleview and then removed with cold forcep, x 1 clip applied thereafter Ascending Colon: normal Transverse Colon -normal Descending Colon:normal Sigmoid Colon: mild, moderate diverticulosis Rectum: Retroflexion with medium sized internal hemorrhoids, grade I Anorectum - normal Colon preparation: [place] Bowel Preparation Scale Right colon; 3 Transverse colon: 3 Left colon; 3 (0 = Unprepared colon segment with mucosa not seen due to solid stool that cannot be cleared. 1 = Portion of mucosa of the colon segment seen, but other areas of the colon segment not well seen due to staining, residual stool and/or opaque liquid. 2 = Minor amount of residual staining, small fragments of stool and/or opaque liquid, but mucosa of colon segment seen well. 3 = Entire mucosa of colon segment seen well with no residual staining, small fragments of stool or opaque liquid) Impression and Post Procedure Diagnosis: colon polyp internal hemorrhoids diverticulosis Plan: High fiber diet leaflet Avoid straining at stool, epsom salts and sitz bath, anusol supps or cream Repeat Colonoscopy in 5 years if adenomatous, 10 yrs if benign or earlier if clinically indicated Above findings were reviewed with the patient and relevant handouts were provided if indicated.
[2023-03-25 11:54] VITALS: BP 100/50; PULSE 62; RESP 17; TEMP 36.2; O2SAT 97
[2023-03-25 12:09] VITALS: BP 103/56; PULSE 58; RESP 16; TEMP 36.2; O2SAT 100
== END 2023-03-25 13:00 | disposition home or self-care (01) ==
PROVIDERS: PCP Internal Medicine; Visit Provider Internal Medicine Gastroenterology
PROC: 0DJD8ZZ Inspection of Lower Intestinal Tract, Via Natural or Artificial Opening Endoscopic (ICD-10-PCS; CPT 45378; principal; 2023-03-25 11:00)
DX: Z12.11 Encounter for screening for malignant neoplasm of colon (principal); Z86.010 Personal history of colon polyps; K63.5 Polyp of colon; K57.30 Diverticulosis of large intestine without perforation or abscess without bleeding; K64.0 First degree hemorrhoids; D25.9 Leiomyoma of uterus, unspecified; Z79.899 Other long term (current) drug therapy; Z87.891 Personal history of nicotine dependence
CPT/HCPCS: 45380; 45381; 88305

== ENCOUNTER → 2023-04-11 08:27 | Outpatient (BNVA) | payer BC, SELFPAY | PROVIDERS: PCP Internal Medicine; Visit Provider Nurse Practitioner ==

== ENCOUNTER 2023-06-11 12:59 | Outpatient (AMB) | payer BC, SELFPAY ==
--- NOTE | 2023-06-11 13:10 | MHC.PC.OV ---
Vital Signs 06/11/23 13:12 Height 5 ft 4 in Weight 168 lb BMI 28.8 BP 100/72 Blood Pressure Location Rt brachial Position Sitting Pulse 58 Pulse Source Pulse Oximeter Pulse Oximetry (%) 98 Oxygen Delivery Method Room Air Intake Visit Reasons: Knee/ Hip Pain Intake Note: Pt is here today c/o Lt hip and L knee pain no injury noted Post menopausal: Yes Allergies raw peas Allergy (Mild, Uncoded 06/11/23 13:29) Hives Medication List - Last Reconciled 06/11/23 by Kenzie Gonzalez MD cholecalciferol (vitamin D3) 100 mcg PO DAILY loratadine (Claritin) 10 mg PO DAILY PRN magnesium 250 mg PO DAILY melatonin 5 mg PO BEDTIME Tobacco use date assessed: 06/11/23 Dental Screening Dental Screen Date: 06/11/23 Did you have a dental visit in the last 12 months?: Yes Did you have a dental problem in the last 6 months where you did not have access to dental care?: No Was dental information given to patient?: Patient has dentist HPI Knee/ Hip Pain HPI Details 52-year-old lady here today complaining intermittent episodes of pain and stiffness in her left hip and left knee, mainly on the lateral aspect, present now for the last week. Denies any history of falls, no injury or strenuous exertion. Patient thinks that it might be from her new office chair that she is using. Patient denies any interference of above symptoms with her day-to-day activity. [facility] Medical History History of onychomycosis Immunization refused Tubular adenoma of colon Uterine fibroid Surgical History History of oral surgery Hx of colonoscopy Family History Father High cholesterol Myocardial infarction Mother Non-melanoma skin cancer High cholesterol Brother Schizophrenia Maternal Grandfather Myocardial infarction Daughter No problems noted. Daughter No problems noted. Daughter No problems noted. Unknown No problems noted. Social History Housing: House Alcohol intake: never Patient Tobacco Use Status: Former Tobacco user Tobacco use type: Cigarette Years Smoked: 8 e-Cigarette/Vaping Use: Never Used service: No Current occupational status: employed Cognitive needs: No Hearing needs: No Vision needs: Yes Questionnaire Thrive Questionnaire Date Thrive assessed: 06/11/23 I am a: Patient What is your living situation today?: I have a steady place to live Within the past 12 months, did the food you bought not last and you didn't have the money to get more?: Never true Within the past 12 months, did you worry whether your food would run out before you got money to buy more?: Never true Do you have trouble paying for medicines?: No Do you have trouble getting transportation to medical appointments?: No Do you have trouble paying your heating and electricity bill?: No Do you have trouble taking care of your child, family member or friend?: No Do you have trouble with day-to-day activities such as bathing, preparing meals, shopping, managing finances, etc.?: No Are you currently unemployed and looking for a job?: No Are you interested in more education?: No AUDIT C Alcohol Use Questionnaire (AUDIT-C) 1. How often do you have a drink containing alcohol?: Never Total Score: 0 Score Reviewed/Action Taken: Yes LORNE-7 AMB Questionnaire LORNE-7 Date LORNE - 7 assessed: 10/15/22 Source: Developed by Drs. Kevin Moody, Iliana Montanez, Malcolm Garzon and colleagues, with an educational geno from [employer]. Review of Systems Const All systems reviewed & are unremarkable except as noted in HPI and below Denies weakness ENT Denies disequilibrium Musc Denies abnormal gait, Denies numbness and Denies tingling Neuro Denies abnormal gait, Denies focal weakness, Denies numbness, Denies tingling, Denies disequilibrium and Denies weakness Physical exam (Primary Care) Vital Signs: Last Vital Signs Pulse 58 06/11/23 13:12 BP 100/72 06/11/23 13:12 Pulse Ox 98 06/11/23 13:12 Oxygen Delivery Method Room Air 06/11/23 13:12 BMI result Body Mass Index 28.8 Tobacco/Smoking Status: Tobacco use Status Tobacco use date assessed 06/11/23 06/11/23 13:18 Patient Tobacco Use Status Former Tobacco user 06/11/23 13:10 Tobacco use type Cigarette 06/11/23 13:10 e-Cigarette/Vaping Use Never Used 06/11/23 13:10 Thrive Assessment: Date of Thrive Assessment Date Thrive assessed 10/15/22 06/11/23 13:10 Const General: comfortable, no acute distress, alert and awake Orientation/consciousness: patient oriented x3 Neck Neck: Yes full ROM, Yes no lymphadenopathy, Yes trachea midline and Yes supple Thyroid: Thyroid normal Back/Spine/Pelvis Back: No back tenderness Skin General skin exam: no rashes or lesions noted Neuro General: patient oriented x3, gait normal, tone normal, moves all extremities, Normal light touch and pain sensation, no focal motor deficits, CN's II-XI intact bilaterally and normal sensation to monofilament Extrem General: Yes normal to inspection, Yes full ROM, Yes no joint enlargement, Yes no clubbing, cyanosis or edema, Yes no calf tenderness and Yes normal gait Left lower extremity: full ROM, no joint enlargement, hip/thigh Details: tenderness Location: of the hip Location: laterally (Left hip) and normal ROM; no crepitus and knee Details: normal ROM; no tenderness, no swelling, Loren's Test not performed and no crepitus; no edema Assessment and Plan Assessment & Plan (1) Lateral pain of left hip: Code(s): M25.552 - Pain in left hip Plan: Likely bursitis, patient would like to try doing holistic treatment 1st. Advised to do stretching, apply moist heat to affected area, declines refer for physical therapy advised return to clinic if no improvement of symptoms noted Coding Level of Care Code Est Pt Level 3 (62373) Diagnoses Lateral pain of left hip M25.552
[2023-06-11 13:12] VITALS: BP 100/72; PULSE 58; O2SAT 98; BMI 28.8
== END 2023-06-11 14:19 | disposition home or self-care (01) ==
PROVIDERS: PCP Internal Medicine; Visit Provider Internal Medicine
DX: M25.552 Pain in left hip (principal)
CPT/HCPCS: 99213

== ENCOUNTER → 2023-06-16 08:30 | Outpatient (BNV) | payer BC, SELFPAY | PROVIDERS: Visit Provider Radiology Diagnostic Radiology | DX: Z12.31 Encounter for screening mammogram for malignant neoplasm of breast (principal) | CPT/HCPCS: 77063; 77067 ==

== ENCOUNTER 2023-06-16 08:33 | Outpatient (REF) | payer BC, SELFPAY ==
--- NOTE | ~2023-06-16 | MM_ITS ---
EXAMINATION: MM SCREENING DIGITAL BREAST TOMOSYNTHESIS, BILATERAL CLINICAL INFORMATION: Screening. Asymptomatic. The lifetime risk of breast cancer based on the Tyrer-Cuzick Model is 10.3%. COMPARISON: Mammography: This study is compared with prior exams dating back to 2017. TECHNIQUE: Digital breast tomosynthesis is performed in both the craniocaudal and mediolateral oblique views along with computer-aided detection (CAD). Synthesized 2D images are generated from the tomosynthesis. FINDINGS: The breasts are heterogeneously dense, which may obscure small masses (ACR BI-RADS breast composition Category c). There are no significant masses, abnormal calcifications, or other abnormalities. MM/MM tomosynthesis screening BI IMPRESSION: No mammographic evidence of malignancy. ASSESSMENT: BI-RADS BI-RADS 1 - Negative RECOMMENDATION: Routine annual mammography screening. 1 year F/U This examination should not preclude the clinical evaluation of a suspicious palpable abnormality. This patient's information was entered into a reminder system with a target due date for their next mammogram.
== END 2023-06-16 08:34 | disposition home or self-care (01) ==
LOC: HO.MAMMO 08:33
PROVIDERS: Visit Provider Internal Medicine
DX: Z12.31 Encounter for screening mammogram for malignant neoplasm of breast (principal)
CPT/HCPCS: 77063; 77067

== ENCOUNTER 2023-09-04 08:17 | Emergency (ER) | payer BC, SELFPAY ==
--- NOTE | ~2023-09-04 | CT_ITS ---
CT ANGIOGRAM NECK WITH CONTRAST CT ANGIOGRAM BRAIN WITH CONTRAST CLINICAL INFORMATION: Exam numbness, tingling, difficulty word finding. COMPARISON: Head CT performed earlier the same day. TECHNIQUE: Test bolus sequences followed by intravenous administration 70 mL of Omnipaque 350. Helical imaging was performed in the axial plane from the thoracic inlet to the skull vertex. Delayed postcontrast imaging of the head was also performed. The data was processed at the pulmonary function technologist workstation for generation of MIP sequences. Angled MIPs and volume rendered reformatted images were also generated at an offline 3D workstation under concurrent supervision. Stenoses are assessed in accordance with NASCET criteria unless otherwise indicated. This CT examination was performed using dose optimization techniques as appropriate, variously including the following: *Automated exposure control *Adjustment of mA and/or kV according to patient size (this includes techniques or standardized protocols for targeted exams where dose is matched to indication/reason for exam; i.e. 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 [There is no intracranial hemorrhage, hydrocephalus, extra-axial surface collection, midline shift, or other herniation pattern. Fernandes to white matter differentiation is diffusely maintained without evidence of an evolved acute territorial infarct. The basilar cisterns are preserved. No significant soft tissue abnormality. No acute osseous abnormality. There is moderate mucosal thickening within the maxillary sinuses bilaterally and there is mild mucosal thickening within the ethmoid air cells bilaterally. CERVICAL SOFT TISSUES AND LUNG APICES: The imaged upper lungs are clear. There is multilevel cervical spondylosis. There are no significant soft tissue findings. NECK CTA: [There is a classic 3 vessel configuration of the aortic arch. Proximal arch vessels are non-stenotic. The vertebral arteries are codominant. No significant ostial stenosis is visualized on either side. Both vertebral arteries are widely patent throughout their extracranial cervical course. Both common and internal carotid arteries are normal in course and caliber.] BRAIN CTA: [There is normal opacification of major intracranial arteries. No focal flow-limiting stenosis nor discrete proximal large artery occlusion. No aneurysm. Timing of the contrast bolus allows assessment of the major dural venous sinuses, which all opacify normally] CT/CT angio head neck stroke IMPRESSION: - No acute intracranial findings. 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 - No acute arterial occlusions and no significant arterial stenoses within the head or neck. Stroke CTA results discussed with KRISTINE Goncalves at 9:07 AM on 09/04/2023.
--- NOTE | ~2023-09-04 | XR_ITS ---
EXAMINATION: XR CHEST CLINICAL INFORMATION: Shear dizziness COMPARISON: Chest 10/18/2011 TECHNIQUE: 2 views of the chest were obtained. FINDINGS: No significant abnormality is noted involving the heart, lungs, mediastinum, bony thorax or soft tissues. XR/XR chest 2V IMPRESSION: Unremarkable chest examination.
--- NOTE | ~2023-09-04 | CT_ITS ---
EXAMINATION: CT HEAD WITHOUT CONTRAST (STROKE PROTOCOL) CLINICAL INFORMATION: Stroke protocol. Numbness, difficulty word finding. COMPARISON: None available. TECHNIQUE: Contiguous axial imaging was performed from the skull base to vertex without intravenous administration of contrast. This CT examination was performed using dose optimization techniques as appropriate, variously including the following: *Automated exposure control *Adjustment of mA and/or kV according to patient size (this includes techniques or standardized protocols for targeted exams where dose is matched to indication/reason for exam; i.e. extremities or head) *Use of iterative reconstruction technique DLP: 571 mGy-cm FINDINGS: There is no acute intra-axial, extra-axial bleed, masses or midline shift. There is no acute infarction in evolution. There is no edema. The robert to white matter differentiation is maintained normal. The lateral ventricles are symmetrical in size and configuration without enlargement. Bone windows reveal no calvarial abnormality. There is no scalp soft tissue abnormality. Bilateral paranasal sinuses and mastoid air cells are well-aerated. CT/CT head for stroke IMPRESSION: No acute intracranial process seen. This critical result was discussed with Justa Barnes at 8:39 hours on 09/04/2023. It was ascertained that the content and urgency of the report was understood at the time of direct communication.
--- NOTE | 2023-09-04 08:19 | ECG_ITS ---
Test Reason : STROKE Blood Pressure : / mmHG Vent. Rate : 068 BPM Atrial Rate : 068 BPM P-R Int : 124 ms QRS Dur : 076 ms QT Int : 410 ms P-R-T Axes : -01 024 011 degrees QTc Int : 435 ms Normal sinus rhythm RSR' or QR pattern in V1 suggests right ventricular conduction delay Otherwise normal ECG When compared with ECG of 18-OCT-2011 23:55, No significant change was found Referred By: Justa Barnes Electronically Signed By:YUNIER PETERSEN MD
--- NOTE | 2023-09-04 08:19 | ED_ITS ---
HPI - General Adult General Chief complaint: Neuro Symptoms/Deficit Stated complaint: STROKE ALERT,LKWT 7AM,NUMB BODY,FOGGY HEAD Time Seen by Provider: 09/04/23 08:19 Source: patient and EMS Mode of arrival: EMS Limitations: no limitations History of Present Illness HPI narrative: Patient is a 52 year old assigned female at with a history of dyslipidemia presenting to the emergency department today with numbness and difficulty word tracking. Patient states that starting at 0700 she began to have full body numbness / tingling and difficulty word tracking / articulating words. Patient denies any dizziness, lightheadedness, abdominal pain, nausea, vomiting, fever, chills, blurry vision, double vision, loss of vision, chest pain, difficulty breathing, shortness of breath, back pain, night sweats, pain with urination, increased urinary frequency, increased urinary urgency, blood in her urine or stool, syncope or a near syncopal episode, recent trauma or falls, bowel incontinence, bladder incontinence, bowel retention, bladder retention, or any other complaints at this time. Onset (ago): hour(s) (1.5) Relieving factors: none Exacerbating factors: none Associated symptoms: denies other symptoms Treatments prior to arrival: none Related Data Home Medications Medication Instructions Recorded Confirmed magnesium 250 mg tablet 250 mg PO DAILY 12/06/20 03/20/23 cholecalciferol (vitamin D3) 50 100 mcg PO DAILY 07/26/21 03/20/23 mcg (2,000 unit) capsule loratadine 10 mg tablet (Claritin) 10 mg PO DAILY PRN Allergy Symptoms 11/12/22 03/20/23 melatonin 5 mg capsule 5 mg PO BEDTIME 02/17/23 03/20/23 Allergies Allergy/AdvReac Type Severity Reaction Status Date / Time raw peas Allergy Mild Hives Uncoded 06/11/23 13:29 Review of Systems 2 Constitutional: Constitutional: Reports no additional constitutional complaints, Denies chills, Denies fever(s) and Denies night sweats Eyes: Eyes: Reports no additional eye complaints, Denies blurry vision, Denies change in vision, Denies diplopia, Denies eye discharge, Denies loss of vision and Denies eye pain ENT: Denies dizziness Cardiovascular: Cardiovascular: Reports no additional cardiovascular complaints, Denies chest pain, Denies lightheadedness, Denies Loss of Consciousness and Denies dyspnea Respiratory: Respiratory: Reports no additional respiratory complaints and Denies dyspnea Gastrointestinal: Gastrointestinal: Reports no additional gastrointestinal complaints, Denies abdominal pain, Denies melena, Denies hematochezia, Denies change in bowel habits and Denies change in stool character Genitourinary: Genitourinary: Denies hematuria, Denies urinary frequency, Denies dysuria, Denies urinary incontinence, Denies urinary hesitancy and Denies urinary urgency Musculoskeletal: Musculoskeletal: Reports no additional musculoskeletal complaints, Reports numbness and Reports tingling Neurologic: Denies dizziness, Denies loss of vision, Reports numbness and Reports tingling Comments: difficulty word tracking / articulating words Psychiatric: Psychiatric: Reports no additional psychiatric complaints Endocrine: Endocrine: Reports no additional endocrine complaints Hematologic/Lymphatic: Hematologic/Lymphatic: Reports no additional hematologic/lymphatic complaints Allergic/Immunologic: Allergic/Immunologic: Reports no additional allergic/immunologic complaints [facility] Past Medical History Attestation statement: The following information was validated with the patient. Source: old records reviewed and nursing notes reviewed Medical History Pre-op chest exam Encounter for annual routine gynecological examination Dyslipidemia Immunization refused History of onychomycosis Tubular adenoma of colon Uterine fibroid Surgical History Hx of colonoscopy History of oral surgery Family History Family History Father High cholesterol Myocardial infarction Mother Non-melanoma skin cancer High cholesterol Brother Schizophrenia Maternal Grandfather Myocardial infarction Daughter No problems noted. Daughter No problems noted. Daughter No problems noted. Unknown No problems noted. Social History Social History Housing: House Alcohol intake: never Patient Tobacco Use Status: Former Tobacco user Tobacco use type: Cigarette Years Smoked: 8 Smoked in Last 30 Days: No e-Cigarette/Vaping Use: Never Used Use of substances other than those prescribed or required for medical reasons: No Advance Directives: No Patient : No service: No Current occupational status: employed Cognitive needs: No Hearing needs: No Vision needs: Yes Physical Exam ED Vital Signs: Vital Signs - 24 hr 09/04/23 08:46 Temperature 98.1 F Pulse Rate 67 Respiratory Rate 11 L Blood Pressure 122/70 Pulse Oximetry 99 Oxygen Delivery Method Room Air BMI result Body Mass Index 30.7 Const General: cooperative, no acute distress, alert and awake Nutritional Appearance: well nourished Orientation/consciousness: patient oriented x3 Limitations: no limitations HENMT Head: Yes normal to inspection and Yes atraumatic Ears: hearing grossly normal bilaterally and external ears normal General nose exam: Normal external nose present, no nasal discharge noted and no epistaxis Face and sinus: Yes normal facial exam, No abrasion and No laceration Mouth: Normal oral and palatal mucosa present, no drooling and no muffled voice Eyes General: appearance normal, both eyes and all related structures Periorbital: periorbital findings normal Eyelids: Yes eyelids normal Conjunctivae: conjunctivae normal Pupils: Equal, round and reactive pupils present EOM: EOMs intact bilaterally Neck Neck: Yes normal visual inspection, Yes full ROM and Yes no lymphadenopathy Chest Chest palpation & inspection: normal inspection of the chest Resp Effort & Inspection: normal respiratory effort and able to speak in complete sentences Auscultation: clear to auscultation bilaterally Cardio Rate: regular rate Rhythm: regular rhythm GI Inspection: Yes normal to inspection Palpation (GI): Soft to palpation, not firm, nontender and no guarding Neuro General: patient oriented x3 and moves all extremities Cranial nerves: Yes Equal, round and reactive pupils present Cognition (Neuro): normal cognition Motor exam (neuro): 5/5 motor strength present throughout Sensory Exam: Normal double simultaneous stimulation for sensation Coordination: [id number] test normal Extrem General: Yes normal to inspection, Yes full ROM and Yes capillary refill normal Psych Appearance: grossly normal Mental Status: mental status grossly normal Affect: normal affect Attitude: cooperative Thought process: Normal thought process present Thought content: Normal thought content present Insight: Good insight present (Psych) NIH Stroke Scale Internal: Initial- Upon Arrival Time: 08:24 Level of Consciousness: Alert Level of Consciousness Questions: Answers both questions correctly Level of Consciousness Commands: Performs both tasks correctly Best Gaze: Normal Visual: No visual loss Facial Palsy: Normal Motor Arm (Right): No drift Motor Arm (Left): No drift Motor Leg (Right): No drift Motor Leg (Left): No drift Limb Ataxia: Absent Sensory: Normal Best Language: No aphasia Dysarthia: Normal Extinction and Inattention: No abnormality Score: 0 Medications Administered Discontinued Medications Generic Name Dose Route Start Last Admin Trade Name Damian PRN Reason Stop Dose Admin Iohexol 100 ml 09/04/23 08:42 09/04/23 08:43 Iohexol 350 Mg/Ml 100 Ml Infus..Btl IV 09/04/23 08:43 70 ml ONCE ONE Administration Medical Decision Making Medical Decision Making [facility] Narrative: Patient is a 52 year old assigned female at with a history of dyslipidemia presenting to the emergency department today after an episode of feeling off and having trouble word finding. Patient's physical exam was unremarkable. Patient's blood work was unremarkable. Patient's urine showed no acute process. Patient's EKG was unremarkable. Patient's chest x-ray, head CT, and head / neck CTA showed no acute process. Patient's clinical presentation is most consistent with a possible hypoglycemic event given this happened this morning, before the patient had eaten anything, and resolved quickly. Patient's POC glucose was 100. I explained my physical exam findings as well as all test results to the patient. I answered all questions asked by the patient. I stressed the importance of the patient taking [his/her/their] medication as prescribed. I stressed the importance of the patient following up with her primary care provider. I stressed the importance of the patient returning to the emergency department immediately if her symptoms were to worsen or if she were to develop any dizziness, shortness of breath, difficulty breathing, chest pain, blurry vision, loss of vision, nausea, vomiting, abdominal pain, fever, chills, back pain, or any other complaints. Patient verbalized agreement and understanding with this treatment plan and discharge. Differential Diagnosis Differential Diagnoses: The differential diagnosis associated with the presentation includes Paresthesias Hypoglycemia TIA CVA Stroke Admission/Observation Consideration of admission/observation: Escalation of care including admission/observation considered Patient would have been admitted to the hospital had her work up had any findings where hospital admission was appropriate and her clinical presentation warranted hospital admission. Lab Data [facility] Lab Attestation statement: I reviewed the patient's lab results. My interpretation of these studies and their corresponding values is that they are grossly normal. 09/04/23 08:58 09/04/23 08:58 Labs: Lab Results 09/04/23 09/04/23 09/04/23 Range/Units 08:58 08:59 09:02 WBC 4.9 (4.8-10.8) X10*3/uL RBC 4.34 (4.20-5.50) X10*6/uL Hgb 13.4 (12.0-16.0) g/dl Hct 40.5 (37.0-47.0) % MCV 93.3 (80.0-98.0) fL MCH 30.9 (27.0-33.0) pg MCHC 33.1 (31.0-35.0) g/dl RDW 12.0 (11.0-16.0) % Plt Count 186 (160-400) X10*3/uL MPV 11.7 (9.4-12.3) fL Immature Gran % (Auto) 0.2 (0.0-0.4) % Neut % (Auto) 56.3 (45-73) % Lymph % (Auto) 29.8 (20-40) % [place] % (Auto) 7.6 (2-11) % Eos % (Auto) 5.3 H (0-4) % Baso % (Auto) 0.8 (0-2) % Lymph # (Auto) 1.5 (1.2-4.9) X10*3/uL [place] # (Auto) 0.4 (0.1-1.2) X10*3/uL Eos # (Auto) 0.3 (0.0-0.4) X10*3/uL Baso # (Auto) 0.0 (0.0-0.2) X10*3/uL Abs Immat Gran (auto) 0.01 (0.00-0.03) X10*3/uL Absolute Neuts (auto) 2.7 (2.0-8.3) x10*3/uL Absolute Nucleated RBC 0.000 (0.0-0.012) X10*3/uL Nucleated RBC % (auto) 0.0 (0.0-0.2) /100WBC PT 11.5 (11.1-13.3) SEC Whole Blood PT 12.7 (11.1-13.5) sec INR 0.9 (0.9-1.1) Whole Blood INR 1.1 (0.9-1.1) APTT 37.2 H (26.0-36.4) SEC Sodium 138 (135-145) mmol/L Potassium 4.2 (3.3-5.1) mmol/L Chloride 106 (96-108) mmol/L Carbon Dioxide 25 (22-29) mmol/L Anion Gap 11 L (12-20) BUN 18 H (9-16) mg/dL Creatinine 0.83 (0.5-1.4) mg/dL Estim Creat Clear Calc 77.7 Estimated GFR > 60 POC Glucose 100 (60-115) mg/dL Random Glucose 97 (60-115) mg/dL Calcium 9.3 (8.4-10.2) mg/dL Magnesium 2.1 (1.6-2.6) mg/dL Total Bilirubin 0.5 (0.0-1.0) mg/dL AST 22 (5-31) U/L ALT 14 (0-31) U/L Alkaline Phosphatase 51 (39-117) U/L Total Creatine Kinase 92 (26-140) U/L Troponin I High Sens < 2.7 (<3.5-17.0) ng/L Total Protein 6.9 (6.5-8.0) g/dL Albumin 3.8 (3.5-5.0) g/dL TSH 1.92 (0.32-4.0) uIU/mL Urine Color Urine Appearance Urine pH (5.0-9.0) Ur Specific [place] (1.005-1.025) Urine Protein (Neg-Trace) mg/dL Urine Glucose (UA) (Negative) mg/dL Urine Ketones (Negative) mg/dL Urine Blood (Negative) Urine Nitrite (Negative) Ur Leukocyte Esterase (Negative) Ethyl Alcohol < 10 mg/dL 09/04/23 Range/Units 09:26 WBC (4.8-10.8) X10*3/uL RBC (4.20-5.50) X10*6/uL Hgb (12.0-16.0) g/dl Hct (37.0-47.0) % MCV (80.0-98.0) fL MCH (27.0-33.0) pg MCHC (31.0-35.0) g/dl RDW (11.0-16.0) % Plt Count (160-400) X10*3/uL MPV (9.4-12.3) fL Immature Gran % (Auto) (0.0-0.4) % Neut % (Auto) (45-73) % Lymph % (Auto) (20-40) % [place] % (Auto) (2-11) % Eos % (Auto) (0-4) % Baso % (Auto) (0-2) % Lymph # (Auto) (1.2-4.9) X10*3/uL [place] # (Auto) (0.1-1.2) X10*3/uL Eos # (Auto) (0.0-0.4) X10*3/uL Baso # (Auto) (0.0-0.2) X10*3/uL Abs Immat Gran (auto) (0.00-0.03) X10*3/uL Absolute Neuts (auto) (2.0-8.3) x10*3/uL Absolute Nucleated RBC (0.0-0.012) X10*3/uL Nucleated RBC % (auto) (0.0-0.2) /100WBC PT (11.1-13.3) SEC Whole Blood PT (11.1-13.5) sec INR (0.9-1.1) Whole Blood INR (0.9-1.1) APTT (26.0-36.4) SEC Sodium (135-145) mmol/L Potassium (3.3-5.1) mmol/L Chloride (96-108) mmol/L Carbon Dioxide (22-29) mmol/L Anion Gap (12-20) BUN (9-16) mg/dL Creatinine (0.5-1.4) mg/dL Estim Creat Clear Calc Estimated GFR POC Glucose (60-115) mg/dL Random Glucose (60-115) mg/dL Calcium (8.4-10.2) mg/dL Magnesium (1.6-2.6) mg/dL Total Bilirubin (0.0-1.0) mg/dL AST (5-31) U/L ALT (0-31) U/L Alkaline Phosphatase (39-117) U/L Total Creatine Kinase (26-140) U/L Troponin I High Sens (<3.5-17.0) ng/L Total Protein (6.5-8.0) g/dL Albumin (3.5-5.0) g/dL TSH (0.32-4.0) uIU/mL Urine Color Yellow Urine Appearance Clear Urine pH 7.5 (5.0-9.0) Ur Specific [place] 1.020 (1.005-1.025) Urine Protein Negative (Neg-Trace) mg/dL Urine Glucose (UA) Negative (Negative) mg/dL Urine Ketones Negative (Negative) mg/dL Urine Blood Negative (Negative) Urine Nitrite Negative (Negative) Ur Leukocyte Esterase Negative (Negative) Ethyl Alcohol mg/dL Independent Interpretation I performed an independent interpretation of an: EKG, Plain X-Ray and CT Scan Interpretation: My interpretation is in agreement with the radiologist's impression of these imaging studies. - CT ANGIOGRAM NECK WITH CONTRAST CT ANGIOGRAM BRAIN WITH CONTRAST CLINICAL INFORMATION: Exam numbness, tingling, difficulty word finding. COMPARISON: Head CT performed earlier the same day. TECHNIQUE: Test bolus sequences followed by intravenous administration 70 mL of Omnipaque 350. Helical imaging was performed in the axial plane from the thoracic inlet to the skull vertex. Delayed postcontrast imaging of the head was also performed. The data was processed at the vascular technologist workstation for generation of MIP sequences. Angled MIPs and volume rendered reformatted images were also generated at an offline 3D workstation under concurrent supervision. Stenoses are assessed in accordance with NASCET criteria unless otherwise indicated. This CT examination was performed using dose optimization techniques as appropriate, variously including the following: *Automated exposure control *Adjustment of mA and/or kV according to patient size (this includes techniques or standardized protocols for targeted exams where dose is matched to indication/reason for exam; i.e. 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 [There is no intracranial hemorrhage, hydrocephalus, extra-axial surface collection, midline shift, or other herniation pattern. Fernandes to white matter differentiation is diffusely maintained without evidence of an evolved acute territorial infarct. The basilar cisterns are preserved. No significant soft tissue abnormality. No acute osseous abnormality. There is moderate mucosal thickening within the maxillary sinuses bilaterally and there is mild mucosal thickening within the ethmoid air cells bilaterally. CERVICAL SOFT TISSUES AND LUNG APICES: The imaged upper lungs are clear. There is multilevel cervical spondylosis. There are no significant soft tissue findings. NECK CTA: [There is a classic 3 vessel configuration of the aortic arch. Proximal arch vessels are non-stenotic. The vertebral arteries are codominant. No significant ostial stenosis is visualized on either side. Both vertebral arteries are widely patent throughout their extracranial cervical course. Both common and internal carotid arteries are normal in course and caliber.] BRAIN CTA: [There is normal opacification of major intracranial arteries. No focal flow-limiting stenosis nor discrete proximal large artery occlusion. No aneurysm. Timing of the contrast bolus allows assessment of the major dural venous sinuses, which all opacify normally] CT/CT angio head neck stroke IMPRESSION: - No acute intracranial findings. 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 - No acute arterial occlusions and no significant arterial stenoses within the head or neck. Stroke CTA results discussed with KRISTINE Goncalves at 9:07 AM on 09/04/2023. Dictated By: Mitchell Lozano MD Signed By: Electronically signed by Mitchell Lozano MD 09/04/23 0908 - EXAMINATION: XR CHEST CLINICAL INFORMATION: Shear dizziness COMPARISON: Chest 10/18/2011 TECHNIQUE: 2 views of the chest were obtained. FINDINGS: No significant abnormality is noted involving the heart, lungs, mediastinum, bony thorax or soft tissues. XR/XR chest 2V IMPRESSION: Unremarkable chest examination. Dictated By: Zachary Jama MD Signed By: Electronically signed by Zachary Jama MD 09/04/23 1006 Radiology Impression Discussion of test interpretation with radiology: I have reviewed the radiologist's reading. Independent Historian Clinical information obtained from an independent historian. History obtained from or confirmed by: EMS (EMS provided additional history and confirmed the history provided by the patient.) Critical Care Time Critical Care Time Critical Care Time: Yes Total Critical Care Time: 45 Attestation: I spent 45 minutes of Critical Care Time with this patient. This does not include time spent on separately reported billable procedures. Discharge Plan Discharge Clinical Impression: Paresthesia, Hypoglycemia Patient Disposition: Home, Self-Care Instructions: Non-diabetic Hypoglycemia (ED), Paresthesia (ED) Additional Instructions: Follow up with your primary care provider. Return to the emergency department immediately if your symptoms worsen or if you develop any dizziness, shortness of breath, difficulty breathing, chest pain, blurry vision, loss of vision, nausea, vomiting, abdominal pain, fever, chills, back pain, or any other complaints. Prescriptions: No Action magnesium 250 mg tablet 250 mg PO DAILY cholecalciferol (vitamin D3) 50 mcg (2,000 unit) capsule 100 mcg PO DAILY loratadine [Claritin] 10 mg tablet 10 mg PO DAILY PRN (Reason: Allergy Symptoms) melatonin 5 mg capsule 5 mg PO BEDTIME Referrals: Kenzie Gonzalez MD [Primary Care Provider] - Print Language: Danish
[2023-09-04 08:33] VITALS: BP 124/75; PULSE 70; O2SAT 100
[2023-09-04] MEDS: iohexoL 350 MG/ML 100 ML INFUS..BTL IV (08:43)
[2023-09-04 08:46] VITALS: BP 122/70; PULSE 67; RESP 11; TEMP 36.7; O2SAT 99; BMI 30.7
[2023-09-04 09:05] LABS: Glucose, Whole Blood 100 mg/dL (60-115)
[2023-09-04 09:06] LABS: Prothrombin Time Whole Bld POC 12.7 sec (11.1-13.5); ~PT, ~INR - Anti Coag Clinic 1.1 (0.9-1.1)
[2023-09-04 09:09] LABS: MANUAL DIFF FLAG NO
[2023-09-04 09:10] LABS: Basophils Percent Auto 0.8 % (0-2); Eosinophils Absolute Auto 0.3 X10*3/uL (0.0-0.4); Eosinophils Percent Auto 5.3 % (0-4); Hematocrit 40.5 % (37.0-47.0); Hemoglobin 13.4 g/dl (12.0-16.0); Imm Gran Abs Auto 0.01 X10*3/uL (0.00-0.03); Imm Gran Pct Auto 0.2 % (0.0-0.4); Lymphocytes Absolute Auto 1.5 X10*3/uL (1.2-4.9); Lymphocytes Percent Auto 29.8 % (20-40); Mean Corpuscular HGB Conc 33.1 g/dl (31.0-35.0); Mean Corpuscular Hemoglobin 30.9 pg (27.0-33.0); Mean Corpuscular Volume 93.3 fL (80.0-98.0); Mean Platelet Volume 11.7 fL (9.4-12.3); Monocytes Absolute Auto 0.4 X10*3/uL (0.1-1.2); Monocytes Percent Auto 7.6 % (2-11); Neutrophils Absolute Auto 2.7 x10*3/uL (2.0-8.3); Neutrophils Percent Auto 56.3 % (45-73); Platelet Count 186 X10*3/uL (160-400); Red Blood Count 4.34 X10*6/uL (4.20-5.50); White Blood Count 4.9 X10*3/uL (4.8-10.8)
[2023-09-04 09:18] LABS: INTERNATIONAL NORM RATIO 0.9 (0.9-1.1); Prothrombin Time 11.5 SEC (11.1-13.3)
[2023-09-04 09:21] LABS: Partial Thromboplastin Time 37.2 SEC (26.0-36.4)
[2023-09-04 09:22] LABS: Stroke Lab Use COMPLETE
[2023-09-04 09:33] LABS: Alanine Aminotransferase 14 U/L (0-31); Albumin Level 3.8 g/dL (3.5-5.0); Alkaline Phosphatase 51 U/L (39-117); Anion Gap 11 (12-20); Aspartate Amino Transferase 22 U/L (5-31); Bilirubin Total 0.5 mg/dL (0.0-1.0); Blood Urea Nitrogen 18 mg/dL (9-16); Calcium 9.3 mg/dL (8.4-10.2); Carbon Dioxide 25 mmol/L (22-29); Chloride 106 mmol/L (96-108); Creatinine Clr Calc Pharmacy 77.7; Estimated Glomerular Filt Rate > 60; Ethanol < 10 mg/dL; Glucose Random 97 mg/dL (60-115); Magnesium 2.1 mg/dL (1.6-2.6); Potassium 4.2 mmol/L (3.3-5.1); Sodium 138 mmol/L (135-145); Total Protein 6.9 g/dL (6.5-8.0)
[2023-09-04 09:40] LABS: Appearance Urine Clear; Color Urine Yellow; Glucose Urine UA Negative (Negative); Leukocyte Esterase Urine Negative (Negative); Nitrite Urine Negative (Negative); PH 7.5 (5.0-9.0); Urine Blood Negative (Negative); Urine Ketones Negative (Negative); Urine Protein Negative (Neg-Trace)
[2023-09-04 09:43] LABS: Troponin-I High Sensitivity < 2.7 ng/L (<3.5-17.0)
[2023-09-04 09:56] LABS: Thyroid Stimulating Hormone 1.92 uIU/mL (0.32-4.0)
[2023-09-04 10:42] VITALS: BP 116/64; PULSE 58; RESP 13; O2SAT 98
[2023-09-05 16:08] LABS: A. Phagocytphilium DNA,RT-PCR NOT DETECTED (NOT DETECTED); Babesia Microti DNA, RT-PCR NOT DETECTED (NOT DETECTED); Borrelia Miyamotoi,DNA RT-PCR NOT DETECTED (NOT DETECTED); E.Chaffeensis DNA RT-PCR NOT DETECTED (NOT DETECTED); Lyme(Borrelia ssp)DNA RT-PCR NOT DETECTED (NOT DETECTED)
== END 2023-09-04 11:00 | disposition home or self-care (01) ==
PROVIDERS: Physician Assistant Medical; Emergency Provider Emergency Medicine Emergency Medical Services; PCP Internal Medicine
DX: R20.2 Paresthesia of skin (principal); E16.2 Hypoglycemia, unspecified; E78.5 Hyperlipidemia, unspecified; Z87.891 Personal history of nicotine dependence; R29.700 NIHSS score 0; Z79.899 Other long term (current) drug therapy
CPT/HCPCS: 36415; 70450; 70496; 70498; 71046; 80053; 80307; 81003; 82550; 82947; 83735; 84443; 84484; 85025; 85610; 85730; 87468; 87469; 87478; 87484; 87798; 93005; 99285; Q9967

== ENCOUNTER 2023-09-13 09:26 | Outpatient (AMB) | payer BC, SELFPAY ==
[2023-09-13 10:27] VITALS: BP 98/64; PULSE 79; TEMP 36.7; O2SAT 97; BMI 29.8
--- NOTE | 2023-09-13 10:27 | AM.OFFWIN_ITS ---
Intake Vital Signs 09/13/23 10:27 Height 5 ft 3 in Weight 168 lb BMI 29.8 BP 98/64 Blood Pressure Location Lt brachial Position Sitting Pulse 79 Pulse Source Pulse Oximeter Temp 98.1 F Temp Source Oral Pulse Oximetry (%) 97 Oxygen Delivery Method Room Air Intake Visit Reasons: EP ?Sinus Infection Intake Note: Pt is here today c/o sinus pressure and congestion x1week Patient Tobacco Use Status: Former Tobacco user Allergies raw peas Allergy (Mild, Uncoded 09/13/23 10:28) Hives HPI EP ?Sinus Infection HPI Details Patient is a 52-year-old female who comes the walk-in clinic complaining of 1 week of nasal congestion, mild cough, headache, and myalgias and low-grade temp that is improving overall, however she is starting to develop some sinus pressure, and has persistent morning drainage, which was bloody this morning. She denies dizziness or weakness, nausea or vomiting, fever or chills, anorexia, chest congestion or cough, shortness of breath or chest pain, or other significant associated symptoms. She did not check for COVID yet, however she states that she did not go out of for home for 7 days. [facility] Medical History Pre-op chest exam Encounter for annual routine gynecological examination Dyslipidemia Immunization refused History of onychomycosis Tubular adenoma of colon Uterine fibroid Surgical History Hx of colonoscopy History of oral surgery Family History Father High cholesterol Myocardial infarction Mother Non-melanoma skin cancer High cholesterol Brother Schizophrenia Maternal Grandfather Myocardial infarction Daughter No problems noted. Daughter No problems noted. Daughter No problems noted. Unknown No problems noted. Social History Housing: House Alcohol intake: never Patient Tobacco Use Status: Former Tobacco user Tobacco use type: Cigarette Years Smoked: 8 e-Cigarette/Vaping Use: Never Used service: No Current occupational status: employed Cognitive needs: No Hearing needs: No Vision needs: Yes Review of Systems Const All systems reviewed & are unremarkable except as noted in HPI and below Physical Exam Vital Signs: Last Vital Signs Temp 98.1 F 09/13/23 10:27 Pulse 79 09/13/23 10:27 BP 98/64 09/13/23 10:27 Pulse Ox 97 09/13/23 10:27 Oxygen Delivery Method Room Air 09/13/23 10:27 BMI result Body Mass Index 29.8 Const General: cooperative, healthy appearing, comfortable, no acute distress, alert, awake, Physically active and well groomed; No anxious, diaphoretic, intoxicated appearing, poor hygiene or tired appearing Nutritional Appearance: average body habitus Orientation/consciousness: oriented to person Limitations: no limitations HEENT Head: Yes normal to inspection, Yes normocephalic and Yes atraumatic Ears: hearing grossly normal bilaterally, external ears normal and Abnormal EAC present (b/l) excessive cerumen General nose exam: Normal external nose present, Normal nares present, No nasal polyps present, Normal nasal mucous membranes and turbinates present, Normal septum present and No nasal discharge present Face and sinus: Yes normal facial exam, Yes sinuses nontender and Yes face symmetric Mouth: Normal oral and palatal mucosa present, lip normal, tongue normal, moist mucous membranes abnormal and no trismus Throat: No peritonsillar mass, Yes postnasal drainage, No uvular edema and No cobblestoning Eyes General: appearance normal, both eyes and all related structures Neck Neck: Yes normal visual inspection, Yes no lymphadenopathy, Yes trachea midline, Yes supple and No anterior neck swelling Resp Effort & Inspection: normal respiratory effort, able to speak in complete sentences, no audible wheezes, no cough, no grunting, not labored, no nasal flaring, no retractions and symmetric chest movement Auscultation: clear to auscultation bilaterally, no crackles, no rales, no rhonchi, no wheezes, lung sounds not diminished and No rub present Cardio Palpation: normal PMI Rate: regular rate Rhythm: regular rhythm Heart sounds: S1 normal heart sound present and S2 normal heart sound present Skin Other: Good color, warm and dry Neuro General: oriented to person Psych Appearance: grossly normal Mental Status: mental status grossly normal Speech and movement: Normal speech and movement present Affect: normal affect Attitude: cooperative Thought process: Normal thought process present Insight: Good insight present (Psych) Judgement: Good judgement present (Psych) Assessment & Plan Assessment & Plan (1) Sinusitis: Code(s): J32.9 - Chronic sinusitis, unspecified Qualifiers: Sinusitis location: ethmoidal Chronicity: acute Recurrence: non- recurrent Qualified Code(s): J01.20 - Acute ethmoidal sinusitis, unspecified Plan: Patient has viral syndrome, pending respiratory panel to rule out flu COVID and RSV. She did not check for COVID at home, so it is possible that she will be negative at this point anyway. She is overall improving, however we did discuss that this could become bacterial, and she is starting to develop some purulence to the discharge, and states that it was bloody today. I also wrote her for antibiotic in case this is not of improve. she can trial Flonase also, and we discussed nasal irrigation in the future to prevent sinus infection. She will continue adequate sleep and oral hydration, and will follow up if symptoms persist or worsen Orders: Orders SARS-CoV2/FLU/RSV Today R05.9 - Cough, unspecified Medications: New amoxicillin-pot clavulanate 875-125 mg 1 tab PO BID 10 tabs 0RF Coding Level of Care Code Est Pt Level 4 (51207) Diagnoses Acute non-recurrent ethmoidal sinusitis J01.20 Sinusitis location: ethmoidal Chronicity: acute Recurrence: non-recurrent
== END 2023-09-13 12:35 | disposition home or self-care (01) ==
PROVIDERS: PCP Internal Medicine; Visit Provider Physician Assistant Medical
DX: J01.20 Acute ethmoidal sinusitis, unspecified (principal)
CPT/HCPCS: 99214

== ENCOUNTER 2023-09-13 11:32 | Outpatient (REF) | payer BC, SELFPAY ==
[2023-09-13 14:41] LABS: Influenza A PCR NEGATIVE (Negative); Influenza B PCR NEGATIVE (Negative); Resp Syncy Virus RNA Qual PCR NEGATIVE (Negative); SARS COV2 PCR INHOUSE NEGATIVE (Negative)
== END 2023-09-13 11:33 | disposition home or self-care (01) ==
LOC: HO.LAB 11:32
PROVIDERS: Visit Provider Physician Assistant Medical
DX: Z11.52 Encounter for screening for COVID-19 (principal); Z20.822 Contact with and (suspected) exposure to COVID-19; R05.9 Cough, unspecified
CPT/HCPCS: 0241U

== ENCOUNTER 2023-10-23 07:57 | Outpatient (AMB) | payer BC, SELFPAY ==
[2023-10-23 08:07] VITALS: BP 110/78; PULSE 63; O2SAT 97; BMI 30.4
--- NOTE | 2023-10-23 08:07 | A.OFFPC_ITS ---
Vital Signs 10/23/23 08:07 Height 5 ft 3 in Weight 171 lb 8 oz BMI 30.4 BP 110/78 Blood Pressure Location Lt brachial Position Sitting Pulse 63 Pulse Source Pulse Oximeter Pulse Oximetry (%) 97 Oxygen Delivery Method Room Air Intake Visit Reasons: Annual PE Intake Note: Pt is here for her Annual PE Is last menstrual period known: No (no longer gets) Allergies raw peas Allergy (Mild, Uncoded 10/23/23 08:24) Hives Medication List - Last Reconciled 10/23/23 by Kenzie Gonzalez MD cholecalciferol (vitamin D3) 100 mcg PO DAILY loratadine (Claritin) 10 mg PO DAILY PRN magnesium 250 mg PO DAILY melatonin 5 mg PO BEDTIME Tobacco use date assessed: 10/23/23 Dental Screening Dental Screen Date: 10/23/23 Did you have a dental visit in the last 12 months?: Yes Did you have a dental problem in the last 6 months where you did not have access to dental care?: No Was dental information given to patient?: Patient has dentist HPI Annual PE HPI Details 52-year-old lady here today for her estrellita al physical exam. She is up-to-date with her cervical cancer screening and a screening mammogram. She just recently had a screening colonoscopy done again March of 2023 due to presence of tubular adenoma in the past, repeat again in 5 years. She has been feeling well with no complaints at present time. Declines getting adult vaccinations. [facility] Medical History (Updated 10/23/23 @ 08:49 by Kenzie Gonzalez MD) History of basal cell carcinoma (BCC) Encounter for annual routine gynecological examination Dyslipidemia Immunization refused History of onychomycosis Tubular adenoma of colon Uterine fibroid Surgical History (Updated 10/23/23 @ 08:27 by Kenzie Gonzalez MD) Hx of colonoscopy History of oral surgery Family History Father High cholesterol Myocardial infarction Mother Non-melanoma skin cancer High cholesterol Brother Schizophrenia Maternal Grandfather Myocardial infarction Daughter No problems noted. Daughter No problems noted. Daughter No problems noted. Unknown No problems noted. Social History Housing: House Alcohol intake: never Patient Tobacco Use Status: Former Tobacco user Tobacco use type: Cigarette Years Smoked: 8 e-Cigarette/Vaping Use: Never Used Second Hand Smoke Exposure: No service: No Current occupational status: employed Cognitive needs: No Hearing needs: No Vision needs: Yes Questionnaire PHQ-9 Over the last 2 weeks, how often have you been bothered by any of the following problems? 55315 - PHQ-9 Billing: Patient declined-do not bill Source: Developed by Drs. Kevin Moody, Iliana Montanez, Malcolm Garzon and colleagues, with an educational geno from [employer]. Thrive Questionnaire Date Thrive assessed: 10/23/23 I am a: Patient What is your living situation today?: I choose not to answer this question Within the past 12 months, did the food you bought not last and you didn't have the money to get more?: I choose not to answer this question Within the past 12 months, did you worry whether your food would run out before you got money to buy more?: I choose not to answer this question Do you have trouble paying for medicines?: I choose not to answer this question Do you have trouble getting transportation to medical appointments?: I choose not to answer this question Do you have trouble paying your heating and electricity bill?: I choose not to answer this question Do you have trouble taking care of your child, family member or friend?: I choose not to answer this question Do you have trouble with day-to-day activities such as bathing, preparing meals, shopping, managing finances, etc.?: I choose not to answer this question Are you currently unemployed and looking for a job?: I choose not to answer this question Are you interested in more education?: I choose not to answer this question AUDIT C Alcohol Use Questionnaire (AUDIT-C) 1. How often do you have a drink containing alcohol?: Never Total Score: 0 LORNE-7 AMB Questionnaire LORNE-7 Date LORNE - 7 assessed: 10/23/23 Source: Developed by Drs. Kevin Moody, Malcolm Kumar and colleagues, with an educational geno from [employer]. LORNE-7 Assessment Billing LORNE-7 Assessment Tool: pt declined-do not bill Review of Systems Const Denies body aches, Denies daytime sleepiness, Denies difficulty sleeping, Denies fatigue, Denies fever(s), Denies headache(s), Reports snoring, Denies stops breathing during sleep and Denies weakness Eyes Details: goes to [facility] eye care Denies change in vision ENT Denies vertigo, Denies dizziness, Denies headache(s), Denies nasal congestion, Denies nasal discharge, Denies disequilibrium and Denies sore throat Card Reports as per HPI, Denies chest pain, Denies syncope, Denies irregular heart rhythm, Denies lightheadedness and Denies dyspnea Resp Denies chest congestion, Denies cough, Denies dyspnea, Reports snoring and Denies wheezing GI Reports bloating (occasional), Denies change in bowel habits, Denies heartburn and Denies nausea Denies hematuria, Denies urinary frequency, Denies difficulty voiding, Denies nocturia, Denies nipple discharge, Denies dysuria, Denies prolapse symptoms, Denies urinary incontinence, Denies urinary urgency and Denies vaginal discharge Musc Reports no additional complaints Skin/Breast Details: Sees [facility] in [facility] Denies breast pain, Denies breast mass, Denies lesions, Denies nipple discharge and Denies rash Neuro Denies vertigo, Denies dizziness, Denies syncope, Denies headache(s), Denies restless legs, Denies disequilibrium and Denies weakness Psych Reports no additional complaints Endo Denies fatigue, Denies polydipsia and Denies polyuria Garrett/Lymph Denies easy bruising Aller/Immun Denies seasonal rhinorrhea and Denies wheezing Physical exam (Primary Care) Vital Signs: Last Vital Signs Pulse 63 10/23/23 08:07 BP 110/78 10/23/23 08:07 Pulse Ox 97 10/23/23 08:07 Oxygen Delivery Method Room Air 10/23/23 08:07 BMI result Body Mass Index 30.4 Tobacco/Smoking Status: Tobacco use Status Tobacco use date assessed 10/23/23 10/23/23 08:16 Patient Tobacco Use Status Former Tobacco user 10/23/23 08:09 Tobacco use type Cigarette 10/23/23 08:09 e-Cigarette/Vaping Use Never Used 10/23/23 08:09 Thrive Assessment: Date of Thrive Assessment Date Thrive assessed 10/23/23 10/23/23 08:16 Const General: comfortable, no acute distress, alert and awake Orientation/consciousness: patient oriented x3 [facility] Head: Yes normocephalic and Yes atraumatic Ears: hearing grossly normal bilaterally, external ears normal, TM's normal bilaterally and EAC's normal General nose exam: Normal external nose present Face and sinus: Yes sinuses nontender and Yes face symmetric Mouth: Normal oral and palatal mucosa present, oropharynx normal and moist mucous membranes Eyes General: appearance normal, both eyes and all related structures Eyelids: Yes eyelids normal Conjunctivae: conjunctivae normal Pupils: Equal, round and reactive pupils present EOM: EOMs intact bilaterally Neck Neck: Yes full ROM, Yes no lymphadenopathy, Yes trachea midline and Yes supple Thyroid: Thyroid normal Chest Breast/axilla palpation: normal palpation of the breasts Resp Auscultation: clear to auscultation bilaterally Cardio Rate: regular rate Rhythm: regular rhythm Heart sounds: S1 normal heart sound present and S2 normal heart sound present Bruits: no abdominal aortic bruits GI Palpation (GI): No Abdominal aortic bruit present, Soft to palpation, nontender, no guarding and no masses General: Yes deferred (Sees [facility], currently up-to-date Pap) Back/Spine/Pelvis Back: No back tenderness Skin Other: Faint hyperpigmentation on right cheek, followed by [facility] General skin exam: no rashes or lesions noted Neuro General: patient oriented x3, gait normal, tone normal, moves all extremities, Normal light touch and pain sensation, no focal motor deficits, CN's II-XI intact bilaterally and normal sensation to monofilament Cranial nerves: Yes Equal, round and reactive pupils present Extrem General: Yes normal to inspection, Yes full ROM, Yes no joint enlargement, Yes no clubbing, cyanosis or edema, Yes no calf tenderness and Yes normal gait Left lower extremity: full ROM, no joint enlargement, hip/thigh Details: tenderness Location: of the hip Location: laterally (Left hip) and normal ROM; no crepitus and knee Details: normal ROM; no tenderness, no swelling, Loren's Test not performed and no crepitus; no edema Psych Appearance: grossly normal Mental Status: mental status grossly normal Speech and movement: Normal speech and movement present Affect: normal affect Attitude: cooperative Thought process: Normal thought process present Thought content: Normal thought content present Results Reviewed Results Reviewed: ENTERED: 09/04/[address]: ORDERED: CBC Auto Diff Test Result Flag Reference Site WBC 4.9 4.8-10.8 X10*3/uL RBC 4.34 4.20-5.50 X10*6/uL HGB 13.4 12.0-16.0 g/dl HCT 40.5 37.0-47.0 % MCV 93.3 80.0-98.0 fL MCH 30.9 27.0-33.0 pg MCHC 33.1 31.0-35.0 g/dl RDW 12.0 11.0-16.0 % PLT 186 160-400 X10*3/uL M NTERED: 09/04/23 [facility] DR: ORDERED: CMP, MG, CK Total, TSH, Ethanol Test Result Flag Reference Site Sodium 138 135-145 mmol/L Potassium 4.2 3.3-5.1 mmol/L CL 106 96-108 mmol/L CO2 25 22-29 mmol/L Gap 11 L 12-20 BUN 18 H 9-16 mg/dL Creat 0.83 0.5-1.4 mg/dL Estimated CrCl 77.7 Provided height and weight: 160.02 cm, 78.5 kg. eGFR (calculated from the MDRD study equation) and eCrCl (calculated from the Cockcroft-Gault equation) are based on different parameters and may not yield comparable results. If eCrCl result is absurd, please check patient's height/weight. EGFR > 60 NOTE: For -Tongan individuals, multiply the result by 1.210. Chronic Kidney Disease: Estimated GFR < 60 mL/min/1.73m2 Severe Kidney Disease: Estimated GFR < 15 mL/min/1.73m2 Glucose, Random 97 60-115 mg/dL CA 9.3 8.4-10.2 mg/dL Magnesium 2.1 1.6-2.6 mg/dL Total Bili 0.5 0.0-1.0 mg/dL AST (GOT) 22 5-31 U/L ALT (GPT) 14 0-31 U/L CK Total 92 26-140 U/L Protein, Total 6.9 6.5-8.0 g/dL Alb 3.8 3.5-5.0 g/dL Alk Phos 51 39-117 U/L TSH 3rd Gen. 1.92 0.32-4.0 uIU/mL TSH 3rd Generation ([facility]) Ethanol < 10 mg/dL Serum/plasma ethanol results are to be used for medical/treatment purposes only. Assessment and Plan Assessment & Plan (1) Annual visit for general adult medical examination with abnormal findings: Code(s): Z00.01 - Encounter for general adult medical examination with abnormal findings Plan: Will check fasting lipids and vitamin-D level. Reviewed recent fasting lab reports done August 2023. Continue with heart dental visit every 6 months and regular eye exams, at least every 2 years. Take adequate calcium in diet and vitamin-D 3 at 2000 IU per cap once a day, in addition to weight-bearing exercises to help maintain good muscle tone and weight control. Instructed to do self-breast exam, and continue to get yearly mammogram, currently up-to-date. She is also up-to-date with her cervical cancer screening, goes to [facility]. . Up-to-date with her screening colonoscopy. Repeat again in 2027 Declines getting any vaccinations (2) Immunization refused: Comment: Does not want to get flu or the COVID vaccine Code(s): Z28.21 - Immunization not carried out because of patient refusal (3) Dyslipidemia: Code(s): E78.5 - Hyperlipidemia, unspecified Plan: Fasting lipid panel ordered, reinforced importance of following a low- cholesterol diet getting regular exercise (4) Tubular adenoma of colon: Comment: 2022 EQUALS NEGATIVE SCOPE REPEAT IN 5 YEARS; 2019=TA Code(s): D12.6 - Benign neoplasm of colon, unspecified Plan: History of tubular adenoma, repeat colonoscopy done March 2023 did not show any tubular adenoma but did show benign polyp and diverticulosis with internal hemorrhoids, to be repeated again in 5 years (5) Uterine fibroid: Comment: Followed at [facility] Code(s): D25.9 - Leiomyoma of uterus, unspecified Plan: Currently followed by [facility] (6) History of basal cell carcinoma (BCC): Code(s): Z85.828 - Personal history of other malignant neoplasm of skin Plan: Currently being followed yearly at [facility] [place]. Advised to wear sunscreen daily Review Flu Vaccine not done: patient reason (Declined) Coding Level of Care Code Est Pt Prev Care 40-64y(32719) Diagnoses Annual visit for general adult medical examination with abnormal findings Z00.01 Immunization refused Z28.21 Dyslipidemia E78.5 Tubular adenoma of colon D12.6 Uterine fibroid D25.9 History of basal cell carcinoma (BCC) Z85.828
== END 2023-10-23 09:29 | disposition home or self-care (01) ==
PROVIDERS: Visit Provider Internal Medicine
DX: Z00.00 Encounter for general adult medical examination without abnormal findings (principal); Z28.21 Immunization not carried out because of patient refusal; E78.5 Hyperlipidemia, unspecified; D12.6 Benign neoplasm of colon, unspecified; D25.9 Leiomyoma of uterus, unspecified; Z85.828 Personal history of other malignant neoplasm of skin
CPT/HCPCS: 99396

== ENCOUNTER 2024-02-17 08:32 | Outpatient (AMB) | payer BC, SELFPAY ==
[2024-02-17 08:54] VITALS: BP 112/70; PULSE 60; TEMP 36.4; O2SAT 99; BMI 30.3
--- NOTE | 2024-02-17 08:54 | MHC.OFFWIV ---
Intake Vital Signs 02/17/24 08:54 Height 5 ft 3 in Weight 171 lb BMI 30.3 BP 112/70 Blood Pressure Location Lt brachial Position Sitting Pulse 60 Pulse Source Pulse Oximeter Temp 97.5 F Temp Source Temporal Artery Scan Pulse Oximetry (%) 99 Oxygen Delivery Method Room Air Intake Visit Reasons: EP ?UTI Intake Note: pt is here today for UTI started 3 days ago Patient Tobacco Use Status: Former Tobacco user Allergies raw peas Allergy (Mild, Uncoded 10/23/23 08:24) Hives Do you need a note to return to daycare/school/sports/work: No HPI HPI Comments History of Present Illness Details 53-year-old female presents today complaining of dysuria urgency and 1 episode of incontinence in the last few days. She states she has had episode of incontinence over the last year but only 3 or 4 times. [facility] Medical History (Updated 02/17/24 @ 09:53 by KRISTINE Ireland) History of basal cell carcinoma (BCC) Encounter for annual routine gynecological examination Dyslipidemia Immunization refused History of onychomycosis Tubular adenoma of colon Uterine fibroid Surgical History (Updated 10/23/23 @ 08:27 by Kenzie Gonzalez MD) Hx of colonoscopy History of oral surgery Family History Father High cholesterol Myocardial infarction Mother Non-melanoma skin cancer High cholesterol Brother Schizophrenia Maternal Grandfather Myocardial infarction Daughter No problems noted. Daughter No problems noted. Daughter No problems noted. Unknown No problems noted. Social History Housing: House Alcohol intake: never Patient Tobacco Use Status: Former Tobacco user Tobacco use type: Cigarette Years Smoked: 8 e-Cigarette/Vaping Use: Never Used Second Hand Smoke Exposure: No service: No Current occupational status: employed Cognitive needs: No Hearing needs: No Vision needs: Yes Review of Systems Const All systems reviewed & are unremarkable except as noted in HPI and below Physical Exam Vital Signs: Last Vital Signs Temp 97.5 F 02/17/24 08:54 Pulse 60 02/17/24 08:54 BP 112/70 02/17/24 08:54 Pulse Ox 99 02/17/24 08:54 Oxygen Delivery Method Room Air 02/17/24 08:54 BMI result Body Mass Index 30.3 Const General: healthy appearing and no acute distress Results AMB Urinalysis, Automated UA Leukoctes 0 Paige/uL Last Edit by Alyssa Wayne MA on 02/17/24 09:26 UA Nitrite Negative Last Edit by Alyssa Wayne MA on 02/17/24 09:26 UA Urobilinogen 0.2 mg/dL Last Edit by Alyssa Wayne MA on 02/17/24 09:26 UA Protein 0 mg/dL Last Edit by Alyssa Wayne MA on 02/17/24 09:26 UA pH 7.5 Last Edit by Alyssa Wayne MA on 02/17/24 09:26 UA Blood 0 Arturo/uL Last Edit by Alyssa Wayne MA on 02/17/24 09:26 UA Specific Henning 1.010 Last Edit by Alyssa Wayne MA on 02/17/24 09:26 UA Ketone Negative Last Edit by Alyssa Wayne MA on 02/17/24 09:26 UA Bilirubin 0 mg/dL Last Edit by Alyssa Wayne MA on 02/17/24 09:26 UA Glucose 0 mg/dL Last Edit by Alyssa Wayne MA on 02/17/24 09:26 Results Reviewed Results Reviewed: I reviewed the results of for urinalysis today that were normal. I will still treat her for UTI due to her specific symptoms but urged her to follow up with her PCP if her incontinence continues Assessment & Plan Assessment & Plan (1) UTI (urinary tract infection): Code(s): N39.0 - Urinary tract infection, site not specified Plan: The patient will follow up with her PCP if incontinence continues. She refused Pyridium Plan See plan Medications: New cephalexin 500 mg PO BID 7 days 14 caps 0RF Coding Level of Care Code Est Pt Level 3 (01658) Diagnoses UTI (urinary tract infection) N39.0
== END 2024-02-17 09:41 | disposition home or self-care (01) ==
PROVIDERS: PCP Internal Medicine; Visit Provider Physician Assistant Medical
DX: N39.0 Urinary tract infection, site not specified (principal)
CPT/HCPCS: 99213

== ENCOUNTER 2024-03-02 13:59 | Outpatient (AMB) | payer BC, SELFPAY ==
--- NOTE | 2024-03-02 14:02 | A.OFFVIS_ITS ---
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 She is doing well with no concerns. Attempting to eat a healthy diet with calcium and vitamin D and stays active with exercise. Currently sexually active. Denies any irritation. Using Replens. STI testing offered; she declines. Last pap smear; 2022. Last mammogram; 2022. Denies any family history of breast, ovarian or colon cancer. [facility] Medical History History of basal cell carcinoma (BCC) Encounter for annual routine gynecological examination Dyslipidemia Immunization refused History of onychomycosis Tubular adenoma of colon Uterine fibroid Surgical History Hx of colonoscopy History of oral surgery Family History Father High cholesterol Myocardial infarction Mother Non-melanoma skin cancer High cholesterol Brother Schizophrenia Maternal Grandfather Myocardial infarction Daughter No problems noted. Daughter No problems noted. Daughter No problems noted. Unknown No problems noted. Social History Housing: House Alcohol intake: never Patient Tobacco Use Status: Former Tobacco user Tobacco use type: Cigarette Years Smoked: 8 e-Cigarette/Vaping Use: Never Used Second Hand Smoke Exposure: No service: No Current occupational status: employed Cognitive needs: No Hearing needs: No Vision needs: Yes Female Reproductive History Menstrual Total pregnancies: 6 Full term: 3 Number of Living Children: 3 Date of last pap smear: 02/17/23 (neg pap and hpv) Date of Mammogram: 06/16/23 (Birad 1) Review of Systems Const All systems reviewed & are unremarkable except as noted in HPI and below Reports as per HPI Eyes Reports no additional complaints ENT Reports no additional complaints Card Reports no additional complaints Resp Reports no additional complaints GI Reports as per HPI and Reports no additional complaints Reports as per HPI Musc Reports no additional complaints Skin/Breast Reports as per HPI Neuro Reports no additional complaints Psych Reports no additional complaints Endo Reports no additional complaints Garrett/Lymph Reports no additional complaints Aller/Immun Reports no additional complaints Physical Exam Vital Signs: Last Vital Signs BP 102/66 03/02/24 14:04 BMI result Body Mass Index 31.7 Const General: cooperative, healthy appearing, no acute distress, well developed and alert Orientation/consciousness: patient oriented x3 HEENT Head: Yes normal to inspection Eyes General: appearance normal, both eyes and all related structures Neck Neck: Yes normal visual inspection Thyroid: Thyroid normal Chest Chest palpation & inspection: normal inspection of the chest and other (no puckering, dimpling, peau de orange, retraction, discharge, masses) Breast/axilla inspection: normal inspection of the breasts Breast/axilla palpation: normal palpation of the breasts Resp Effort & Inspection: normal respiratory effort GI Inspection: Yes normal to inspection Palpation (GI): Soft to palpation Rectal Exam - Female: deferred General: Yes bladder normal to palpation External Female Exam: normal external appearance and normal appearance of the urethra Speculum Exam - Vagina: normal appearance of the vagina, normal palpation and normal vaginal discharge Speculum Exam - Cervix: normal appearance of the cervix and normal palpation Bimanual exam- vagina & uterus: normal bimanual exam, normal palpation, uterine size normal, bladder normal to palpation, normal palpation and non-tender Bimanual Exam- Adnexa, other: no masses Skin General skin exam: no rashes or lesions noted Rashes: no rashes Neuro General: patient oriented x3 Cognition (Neuro): normal cognition Extrem General: Yes normal to inspection Psych Attitude: cooperative Thought process: Normal thought process present Assessment & Plan Assessment & Plan (1) Encounter for well woman exam with routine gynecological exam: Code(s): Z01.419 - Encounter for gynecological examination (general) (routine) without abnormal findings (2) History of uterine fibroid: Code(s): Z86.018 - Personal history of other benign neoplasm Plan Discussed: Current recommendations for pap smears per ASCCP guidelines. Breast awareness, periodic self breast exams and yearly mammogram. Maintain a healthy lifestyle, well balanced diet including Calcium 1,200 mg and Vitamin D 600 IU daily, and routine exercise. Plan pelvic ultrasound to assess fibroids for stability. Advised to call if any postmenopausal bleeding, pelvic pain, pelvic pressure or bloating. Continue with Replens, discussed option for estrogen if needed in the future. Patient verbalizes understanding and agrees to the plan of care. She was given opportunity to ask questions and all questions were answered to the best of my ability. 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 This note is constructed using voice recognition software. While every effort has been made to ensure accuracy, audiovisual tech errors may have been included. Orders: Orders US pelvic and transvaginal Today D21.9 - Benign neoplasm of connective and other soft tissue, unspecified Coding Level of Care Code Est Pt Prev Care 40-64y(59384) Diagnoses Encounter for well woman exam with routine gynecological exam Z01.419 History of uterine fibroid Z86.018
[2024-03-02 14:04] VITALS: BP 102/66; BMI 31.7
== END 2024-03-02 14:45 | disposition home or self-care (01) ==
LOC: HO.HWS 13:59
PROVIDERS: PCP Internal Medicine; Visit Provider Advanced Practice Midwife
DX: Z01.419 Encounter for gynecological examination (general) (routine) without abnormal findings (principal); Z86.018 Personal history of other benign neoplasm
CPT/HCPCS: 99396

== ENCOUNTER → 2024-03-02 13:59 | Outpatient (BNVA) | payer BC, SELFPAY | PROVIDERS: PCP Internal Medicine; Visit Provider Advanced Practice Midwife ==

== ENCOUNTER 2024-04-09 00:50 | Emergency (ER) | payer BC, SELFPAY ==
--- NOTE | 2024-04-09 | ECG_ITS ---
Test Reason : CHEST PAIN Blood Pressure : / mmHG Vent. Rate : 076 BPM Atrial Rate : 076 BPM P-R Int : 152 ms QRS Dur : 074 ms QT Int : 392 ms P-R-T Axes : 045 032 009 degrees QTc Int : 441 ms Normal sinus rhythm Possible Left atrial enlargement Nonspecific ST abnormality Abnormal ECG When compared with ECG of 04-SEP-2023 08:44, No significant change was found Referred By: Generic ED Physician Electronically Signed By:Ludwig Azul
--- NOTE | ~2024-04-09 | XR_ITS ---
EXAMINATION: XR CHEST CLINICAL INFORMATION: Chest pain. COMPARISON: 09/04/2023. TECHNIQUE: 2 views of the chest were obtained. FINDINGS: No significant abnormality is noted involving the heart, lungs, mediastinum, bony thorax or soft tissues. XR/XR chest 2V IMPRESSION: Unremarkable examination.
[2024-04-09 01:03] VITALS: BP 133/69; PULSE 74; RESP 16; TEMP 36.5; O2SAT 99; BMI 31.6
[2024-04-09 01:21] LABS: MANUAL DIFF FLAG NO
[2024-04-09 01:23] LABS: Basophils Absolute Auto 0.1 X10*3/uL (0.0-0.2); Basophils Percent Auto 0.9 % (0-2); Eosinophils Absolute Auto 0.4 X10*3/uL (0.0-0.4); Eosinophils Percent Auto 7.4 % (0-4); Hematocrit 40.3 % (37.0-47.0); Hemoglobin 13.4 g/dl (12.0-16.0); Imm Gran Abs Auto 0.01 X10*3/uL (0.00-0.03); Imm Gran Pct Auto 0.2 % (0.0-0.4); Lymphocytes Absolute Auto 2.1 X10*3/uL (1.2-4.9); Lymphocytes Percent Auto 37.6 % (20-40); Mean Corpuscular HGB Conc 33.3 g/dl (31.0-35.0); Mean Corpuscular Hemoglobin 30.7 pg (27.0-33.0); Mean Corpuscular Volume 92.4 fL (80.0-98.0); Mean Platelet Volume 11.5 fL (9.4-12.3); Monocytes Absolute Auto 0.4 X10*3/uL (0.1-1.2); Monocytes Percent Auto 6.9 % (2-11); Neutrophils Absolute Auto 2.7 x10*3/uL (2.0-8.3); Platelet Count 196 X10*3/uL (160-400); Red Blood Count 4.36 X10*6/uL (4.20-5.50); Red Cell Distribution Width 12.6 % (11.0-16.0); White Blood Count 5.6 X10*3/uL (4.8-10.8)
[2024-04-09 01:28] LABS: INTERNATIONAL NORM RATIO 0.9 (0.9-1.1); Prothrombin Time 11.3 SEC (11.1-13.3)
[2024-04-09 01:37] LABS: Alanine Aminotransferase 19 U/L (0-31); Albumin Level 4.1 g/dL (3.5-5.0); Alkaline Phosphatase 63 U/L (39-117); Anion Gap 12 (12-20); Aspartate Amino Transferase 24 U/L (5-31); Bilirubin Total 0.3 mg/dL (0.0-1.0); Blood Urea Nitrogen 32 mg/dL (9-16); Calcium 10.2 mg/dL (8.4-10.2); Carbon Dioxide 26 mmol/L (22-29); Chloride 107 mmol/L (96-108); Creatinine Clr Calc Pharmacy 76.1; Estimated Glomerular Filt Rate > 60; Glucose Random 105 mg/dL (60-115); Sodium 141 mmol/L (135-145); Total Protein 7.3 g/dL (6.5-8.0)
[2024-04-09 01:44] LABS: Troponin-I High Sensitivity < 2.7 ng/L (<3.5-17.0)
[2024-04-09 03:08] LABS: D Dimer High Sensitivity < 150 NG/ML
--- NOTE | 2024-04-09 03:12 | ED_ITS ---
HPI - Chest Pain General Chief Complaint: Chest Pain Stated Complaint: Chest Pain Time Seen by Provider: 04/09/24 02:57 Source: patient and family () Mode of arrival: ambulatory Limitations: no limitations History of Present Illness ED Provider: DR. Hernandez HPI narrative: 53-year-old female came in for evaluation of mid chest pain started 00:00 that woke the patient up from sleep, patient described as mid chest pain with no radiation dull aching started as a constant pain that gradually started to fade away. Patient also been having epigastric burning sensation, pain was associated with palpitation but no diaphoresis, no SOB pain lasted for about 1 hour then patient now has no chest pain or any other symptoms. No recent travel, no lower extremity swelling or edema. Related Data Home Medications ?Medication ?Instructions ?Recorded ?Confirmed magnesium 250 mg tablet 250 mg PO DAILY 12/06/20 03/20/23 cholecalciferol (vitamin D3) 50 100 mcg PO DAILY 07/26/21 03/20/23 mcg (2,000 unit) capsule loratadine 10 mg tablet (Claritin) 10 mg PO DAILY PRN Allergy Symptoms 11/12/22 03/20/23 melatonin 5 mg capsule 5 mg PO BEDTIME 02/17/23 03/20/23 elderberry fruit 350 mg capsule mg PO 03/02/24 Allergies Allergy/AdvReac Type Severity Reaction Status Date / Time raw peas Allergy Mild Hives Uncoded 04/09/24 01:04 Review of Systems 2 Review of Systems: All other systems are reviewed and are negative Constitutional: Reports as per HPI and Reports no additional constitutional complaints Eyes: Reports as per HPI and Reports no additional eye complaints Reports system reviewed and no additional complaints, except as documented Cardiovascular: Reports as per HPI and Reports no additional cardiovascular complaints Respiratory: Reports as per HPI and Reports no additional respiratory complaints Gastrointestinal: Reports as per HPI and Reports no additional gastrointestinal complaints Genitourinary: Reports no additional female genitourinary complaints Musculoskeletal: Reports no additional musculoskeletal complaints Skin/Breast: Reports system reviewed and no additional complaints, except as docu Psychiatric: Reports no additional psychiatric complaints Endocrine: Reports no additional endocrine complaints Hematologic/Lymphatic: Reports no additional hematologic/lymphatic complaints Allergic/Immunologic: Reports no additional allergic/immunologic complaints Reports system reviewed and no additional complaints, except as documented and Reports Abnormal speech present [facility] Past Medical History Medical History History of basal cell carcinoma (BCC) Encounter for annual routine gynecological examination Dyslipidemia Immunization refused History of onychomycosis Tubular adenoma of colon Uterine fibroid Surgical History Hx of colonoscopy History of oral surgery Family History Family History Father High cholesterol Myocardial infarction Mother Non-melanoma skin cancer High cholesterol Brother Schizophrenia Maternal Grandfather Myocardial infarction Daughter No problems noted. Daughter No problems noted. Daughter No problems noted. Unknown No problems noted. Social History Social History Housing: House Alcohol intake: never Patient Tobacco Use Status: Former Tobacco user Tobacco use type: Cigarette Years Smoked: 8 e-Cigarette/Vaping Use: Never Used Second Hand Smoke Exposure: No Advance Directives: No Advance Directives Information Provided: Yes Do you have a plan to hurt others: No Plan service: No Current occupational status: employed Cognitive needs: No Hearing needs: No Vision needs: Yes Physical Exam 2 Vital Signs: Vital Signs: Last Vital Signs Temp 97.7 F 04/09/24 01:03 Pulse 74 04/09/24 01:03 Resp 16 04/09/24 01:03 BP 133/69 04/09/24 01:03 Pulse Ox 99 04/09/24 01:03 O2 Del Method Room Air 04/09/24 01:03 BMI result Body Mass Index 31.6 Vital signs have been reviewed and appear to be correct. Blood pressure elevated. Heart rate normal. Respiratory rate normal. Temperature normal. Oxygen saturation normal. Appearance: Alert. Oriented X3. No acute distress. Head: Normal external exam. Normocephalic. Atraumatic. No Whyte signs noted. No raccoon eyes noted Eyes: PERRLA. EOMI. Conjunctiva and sclera normal. Eyelids normal. ENT: TM's Normal. Pharynx normal. Uvula midline. Moist mucous membranes. No trismus noted. No drooling noted. No muffled voice noted. Neck: Normal inspection. Neck supple. FROM. No adenopathy. Thyroid Normal. No meningeal signs. No neck mass noted. CVS: Normal heart rate and rhythm. Heart sound normal. No murmurs noted. Pulses normal throughout. Respiratory: No respiratory distress. Painless inspiration. Breath sounds normal. No wheezes/rales/rhonchi noted. Chest nontender. No accessory muscle usage noted or decreased air movement noted. Abdomen: Soft and nontender. Bowel sounds normal in all 4 quadrants. No distention noted. No organomegaly noted. No visible injury noted. Back: No CVA tenderness. Full range of motion noted. Skin: Skin warm and dry. Normal skin color. Normal skin turgor. No rashes/lesions/lacerations noted. Extremities: No lower extremity edema. Extremities exhibit normal range of motion. Extremities nontender. Neuro: Oriented X 3. Cranial nerve exam: II-XII are grossly intact No motor deficit. No sensory deficit. Reflexes normal. Course Reevaluation(s) Reevaluation #1: Chest pain that resolved, negative troponin x2, negative D-dimer, no EKG changes, patient now is chest pain-free. Unremarkable labs Time: 04:15 Medical Decision Making Differential Diagnosis Differential Diagnoses: The differential diagnosis associated with the presentation includes (ACS, pulmonary embolism, pneumonia, pleural effusion, electrolyte derangement, severe anemia.) Admission/Observation Consideration of admission/observation: Escalation of care including admission/observation considered Lab Data MDM Lab Attestation statement: I reviewed the patient's lab results. 04/09/24 01:10 04/09/24 01:10 Labs: Lab Results 04/09/24 Range/Units 01:10 WBC 5.6 (4.8-10.8) X10*3/uL RBC 4.36 (4.20-5.50) X10*6/uL Hgb 13.4 (12.0-16.0) g/dl Hct 40.3 (37.0-47.0) % MCV 92.4 (80.0-98.0) fL MCH 30.7 (27.0-33.0) pg MCHC 33.3 (31.0-35.0) g/dl RDW 12.6 (11.0-16.0) % Plt Count 196 (160-400) X10*3/uL MPV 11.5 (9.4-12.3) fL Immature Gran % (Auto) 0.2 (0.0-0.4) % Neut % (Auto) 47.0 (45-73) % Lymph % (Auto) 37.6 (20-40) % Bourbon % (Auto) 6.9 (2-11) % Eos % (Auto) 7.4 H (0-4) % Baso % (Auto) 0.9 (0-2) % Lymph # (Auto) 2.1 (1.2-4.9) X10*3/uL Bourbon # (Auto) 0.4 (0.1-1.2) X10*3/uL Eos # (Auto) 0.4 (0.0-0.4) X10*3/uL Baso # (Auto) 0.1 (0.0-0.2) X10*3/uL Abs Immat Gran (auto) 0.01 (0.00-0.03) X10*3/uL Absolute Neuts (auto) 2.7 (2.0-8.3) x10*3/uL Absolute Nucleated RBC 0.000 (0.0-0.012) X10*3/uL Nucleated RBC % (auto) 0.0 (0.0-0.2) /100WBC PT 11.3 (11.1-13.3) SEC INR 0.9 (0.9-1.1) D-Dimer High Sensitivty < 150 NG/ML Sodium 141 (135-145) mmol/L Potassium 4.0 (3.3-5.1) mmol/L Chloride 107 (96-108) mmol/L Carbon Dioxide 26 (22-29) mmol/L Anion Gap 12 (12-20) BUN 32 H (9-16) mg/dL Creatinine 0.85 (0.5-1.4) mg/dL Estim Creat Clear Calc 76.1 Estimated GFR > 60 Random Glucose 105 (60-115) mg/dL Calcium 10.2 D (8.4-10.2) mg/dL Total Bilirubin 0.3 (0.0-1.0) mg/dL AST 24 (5-31) U/L ALT 19 (0-31) U/L Alkaline Phosphatase 63 (39-117) U/L Troponin I High Sens < 2.7 (<3.5-17.0) ng/L Total Protein 7.3 (6.5-8.0) g/dL Albumin 4.1 (3.5-5.0) g/dL Independent Interpretation I performed an independent interpretation of an: EKG (Normal sinus rhythm at 76 beats per minutes, normal intervals, normal axis deviation, T-wave inversion in lead 3 and AVF, no significant change from previous EKG.) and Plain X-Ray (No acute intrathoracic pathology.) Radiology Impression Discussion of test interpretation with radiology: I have reviewed the radiologist's reading. Discharge Plan Discharge Clinical Impression: Chest pain Patient Disposition: Home, Self-Care Instructions: Chest Pain (ED) Prescriptions: No Action magnesium 250 mg tablet 250 mg PO DAILY cholecalciferol (vitamin D3) 50 mcg (2,000 unit) capsule 100 mcg PO DAILY loratadine [Claritin] 10 mg tablet 10 mg PO DAILY PRN (Reason: Allergy Symptoms) melatonin 5 mg capsule 5 mg PO BEDTIME elderberry fruit 350 mg capsule PO Referrals: Kenzie Gonzalez MD [Primary Care Provider] - Print Language: Zimbabwean
[2024-04-09 03:49] LABS: Troponin-I High Sensitivity < 2.7 ng/L (<3.5-17.0)
[2024-04-09 04:38] VITALS: BP 133/69; PULSE 74; RESP 16; TEMP 36.5; O2SAT 99
== END 2024-04-09 04:39 | disposition home or self-care (01) ==
PROVIDERS: Emergency Provider Emergency Medicine; PCP Internal Medicine
DX: R07.9 Chest pain, unspecified (principal); R10.13 Epigastric pain
CPT/HCPCS: 36415; 71046; 80053; 84484; 85025; 85379; 85610; 93005; 99283; 99284

== ENCOUNTER → 2024-04-09 00:51 | Outpatient (BNV) | payer BC, SELFPAY | PROVIDERS: Emergency Provider Emergency Medicine; PCP Internal Medicine; Visit Provider Internal Medicine Cardiovascular Disease | DX: R94.31 Abnormal electrocardiogram [ECG] [EKG] (principal); R07.9 Chest pain, unspecified | CPT/HCPCS: 93010 ==

== ENCOUNTER 2024-05-21 10:52 | Outpatient (REF) | payer BC, SELFPAY ==
--- NOTE | ~2024-05-21 | US_ITS ---
EXAMINATION: US PELVIS CLINICAL INFORMATION: Benign neoplasm of connective tissue, postmenopausal. COMPARISON: Pelvic ultrasound on 08/01/2020. TECHNIQUE: Ultrasound of the pelvis is performed using both transabdominal and transvaginal transducers along with Doppler. Transvaginal imaging is performed due to inadequate visualization transabdominally. FINDINGS: The uterus measures 6.1 x 2.8 x 4.3 cm and is anteverted. Endometrial thickness is 2 mm. No significant free fluid. Right ovary not visualized. Limited visualization due to bowel gas. 1.8 x 0.9 x 1.5 cm, volume 1.3 mL. Structure felt to represent the left ovary was seen only on transabdominal ultrasound images and is grossly unremarkable. Please note that the bilateral ovaries were not visualized on the prior exam. 1.6 x 1.3 x 1.7 cm right uterine calcified lesion, previously 1.7 x 1.4 x 1.8 cm, characteristic of a calcified fibroid. US/US pelvic and transvaginal IMPRESSION: 1. Redemonstration of right uterine calcified lesion characteristic of a fibroid. 2. Left ovary poorly visualized. Right ovary not visualized. Limited visualization due to bowel gas.
== END 2024-05-21 10:53 | disposition home or self-care (01) ==
LOC: HO.US 10:52
PROVIDERS: Visit Provider Advanced Practice Midwife
DX: D21.9 Benign neoplasm of connective and other soft tissue, unspecified (principal)
CPT/HCPCS: 76830; 76856

== ENCOUNTER 2024-06-16 10:07 | Outpatient (REF) | payer BC, SELFPAY | END 2024-06-16 10:08 | disposition home or self-care (01) | LOC: HO.MAMMO 10:07 | PROVIDERS: PCP Internal Medicine; Visit Provider Internal Medicine | DX: Z13.89 Encounter for screening for other disorder (principal) ==

== ENCOUNTER 2024-06-29 | Outpatient (REF) | payer BC, SELFPAY | END 2024-06-29 00:01 | disposition home or self-care (01) | LOC: HO.MAMMO | PROVIDERS: Visit Provider Internal Medicine | DX: Z12.31 Encounter for screening mammogram for malignant neoplasm of breast (principal) | CPT/HCPCS: 77063; 77067 ==

== ENCOUNTER → 2024-06-29 11:30 | Outpatient (BNV) | payer BC, SELFPAY | PROVIDERS: Visit Provider Radiology Diagnostic Radiology | DX: Z12.31 Encounter for screening mammogram for malignant neoplasm of breast (principal) | CPT/HCPCS: 77063; 77067 ==

== ENCOUNTER 2024-08-24 10:55 | Outpatient (AMB) | payer BC, SELFPAY ==
--- NOTE | 2024-08-24 10:56 | MHC.OFFVIS ---
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 She is not experienced any pelvic pain bloating or vaginal bleeding. [facility] Medical History History of basal cell carcinoma (BCC) Encounter for annual routine gynecological examination Dyslipidemia Immunization refused History of onychomycosis Tubular adenoma of colon Uterine fibroid Surgical History Hx of colonoscopy History of oral surgery Family History Father High cholesterol Myocardial infarction Mother Non-melanoma skin cancer High cholesterol Brother Schizophrenia Maternal Grandfather Myocardial infarction Daughter No problems noted. Daughter No problems noted. Daughter No problems noted. Unknown No problems noted. Social History Housing: House Alcohol intake: never Patient Tobacco Use Status: Former Tobacco user Tobacco use type: Cigarette Years Smoked: 8 e-Cigarette/Vaping Use: Never Used Second Hand Smoke Exposure: No service: No Current occupational status: employed Cognitive needs: No Hearing needs: No Vision needs: Yes Review of Systems Const All systems reviewed & are unremarkable except as noted in HPI and below Endo Reports no additional complaints Physical Exam Const General: cooperative, healthy appearing and no acute distress Psych Appearance: well kempt Attitude: cooperative Thought process: Normal thought process present Results Reviewed Results Reviewed: [address] [address] Ultrasound Report Signed Patient: Joyce Alonso MR#: [id number] : 1970 Acct:[id number] Age/Sex: 53 / F ADM Date: 05/21/24 Loc: HO.US Attending Dr: Lucia Segovia CNM Ordering Physician: Lucia Segovia CNM Date of Service: 05/21/24 Procedure(s): US pelvic and transvaginal Accession Number(s): [id number] cc: Lucia Segovia CNM~ EXAMINATION: US PELVIS CLINICAL INFORMATION: Benign neoplasm of connective tissue, postmenopausal. COMPARISON: Pelvic ultrasound on 08/01/2020. TECHNIQUE: Ultrasound of the pelvis is performed using both transabdominal and transvaginal transducers along with Doppler. Transvaginal imaging is performed due to inadequate visualization transabdominally. FINDINGS: The uterus measures 6.1 x 2.8 x 4.3 cm and is anteverted. Endometrial thickness is 2 mm. No significant free fluid. Right ovary not visualized. Limited visualization due to bowel gas. 1.8 x 0.9 x 1.5 cm, volume 1.3 mL. Structure felt to represent the left ovary was seen only on transabdominal ultrasound images and is grossly unremarkable. Please note that the bilateral ovaries were not visualized on the prior exam. 1.6 x 1.3 x 1.7 cm right uterine calcified lesion, previously 1.7 x 1.4 x 1.8 cm, characteristic of a calcified fibroid. US/US pelvic and transvaginal IMPRESSION: 1. Redemonstration of right uterine calcified lesion characteristic of a fibroid. 2. Left ovary poorly visualized. Right ovary not visualized. Limited visualization due to bowel gas. 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 Advised to call for further follow up if there is any concerns such as bloating, abdominal pain, vaginal bleeding. Counseled re: Leiomyoma: common pelvic neoplasm, usually regress or stabilize with menopause not requiring any treatment or removal. All of her questions and concerns were addressed to the best of my ability and shared decision making. She is agreeable to the plan of care. This note is constructed using voice recognition software. While every effort has been made to ensure accuracy, cherry cutter errors may have been included. Coding Level of Care Code Est Pt Level 3 (23922) Diagnoses Encounter to discuss test results Z71.2 History of uterine fibroid Z86.018
== END 2024-08-24 12:37 | disposition home or self-care (01) ==
PROVIDERS: PCP Internal Medicine; Visit Provider Advanced Practice Midwife
DX: Z71.2 Person consulting for explanation of examination or test findings (principal); Z86.018 Personal history of other benign neoplasm
CPT/HCPCS: 99213

== ENCOUNTER → 2024-08-24 10:55 | Outpatient (BNVA) | payer BC, SELFPAY | PROVIDERS: PCP Internal Medicine; Visit Provider Advanced Practice Midwife ==

== ENCOUNTER 2024-10-25 08:30 | Outpatient (AMB) | payer BC, SELFPAY ==
[2024-10-25 08:35] VITALS: BP 98/70; PULSE 58; O2SAT 98; BMI 30.5
--- NOTE | 2024-10-25 08:35 | A.OFFPC_ITS ---
Vital Signs 10/25/24 08:35 Height 5 ft 3 in Weight 172 lb BMI 30.5 BP 98/70 Blood Pressure Location Rt brachial Position Sitting Pulse 58 Pulse Source Pulse Oximeter Pulse Oximetry (%) 98 Oxygen Delivery Method Room Air Intake Visit Reasons: Annual PE Intake Note: Pt is here today for her PE: last mammogram 06/29/24, papsmear 02/18/23, colonoscopy 03/25/23 Allergies raw peas Allergy (Mild, Uncoded 10/25/24 09:28) Hives Medication List - Last Reconciled 10/25/24 by Kenzie Gonzalez MD cholecalciferol (vitamin D3) 100 mcg PO DAILY elderberry fruit mg PO loratadine (Claritin) 10 mg PO DAILY PRN magnesium 250 mg PO DAILY melatonin 5 mg PO BEDTIME Tobacco use date assessed: 10/25/24 Dental Screening Dental Screen Date: 10/25/24 Did you have a dental visit in the last 12 months?: Yes Did you have a dental problem in the last 6 months where you did not have access to dental care?: No Was dental information given to patient?: Patient has dentist HPI Annual PE HPI Details - The patient is a 53-year-old female pr esenting for physical exam - Hypertension: Previously recorded read ings include varied blood pressure levels, typically around 102/66 to 110/70, with a recent low of 98/70. No symptoms such as lightheadedness or shortness of breath were reported. - Menopause: Patient has been postmenopa usal for approximately two years and reports occasional mild hot flashes without sweating or flushing. - Hypoglycemia incident: Noted history o f low blood sugar episodes. A previous episode led to an emergency evaluation, with all tests including CAT scan and blood panels reported as normal. - Palpitations: Occur sporadically and h ave been long-standing. Past evaluations included a Holter monitor and echocardiogram. - Toenail fungus: History of treatments with oral antifungals like terbinafine (Lamisil), currently trying non-pharmacological approaches such as apple cider vinegar. - Precancerous polyp: Her latest colono scopy done 03/25/[address] Shelton reveal presence of tubulovillous adenoma which was removed, repeat colonoscopy due again in 2027. - Earwax impaction: Both ears noted to h ave significant wax buildup addressed during the visit. - last mammogram 06/29/24 - up-to-date with her cervical cancer sc candy, last done a year ago at [facility] with benign findings, repeat due again in 2027 [facility] Medical History (Updated 10/25/24 @ 09:52 by Kenzie Gonzalez MD) Onychomycosis Hx of adenomatous colonic polyps Impacted cerumen of both ears History of basal cell carcinoma (BCC) Encounter for annual routine gynecological examination Dyslipidemia Immunization refused History of onychomycosis Tubular adenoma of colon Uterine fibroid Surgical History Hx of colonoscopy History of oral surgery Family History Father High cholesterol Myocardial infarction Mother Non-melanoma skin cancer High cholesterol Brother Schizophrenia Maternal Grandfather Myocardial infarction Daughter No problems noted. Daughter No problems noted. Daughter No problems noted. Unknown No problems noted. Social History Housing: House Alcohol intake: never Patient Tobacco Use Status: Former Tobacco user Tobacco use type: Cigarette Years Smoked: 8 e-Cigarette/Vaping Use: Never Used Second Hand Smoke Exposure: No service: No Current occupational status: employed Cognitive needs: No Hearing needs: No Vision needs: Yes Questionnaire PHQ-9 Over the last 2 weeks, how often have you been bothered by any of the following problems? 07475 - PHQ-9 Billing: Patient declined-do not bill Source: Developed by Drs. Kevin Moody, Iliana Montanez, Malcolm Garzon and colleagues, with an educational geno from [employer]. Thrive Questionnaire Date Thrive assessed: 10/25/24 I am a: Patient What is your living situation today?: I choose not to answer this question Within the past 12 months, did the food you bought not last and you didn't have the money to get more?: I choose not to answer this question Within the past 12 months, did you worry whether your food would run out before you got money to buy more?: I choose not to answer this question Do you have trouble paying for medicines?: I choose not to answer this question Do you have trouble getting transportation to medical appointments?: I choose not to answer this question Do you have trouble paying your heating and electricity bill?: I choose not to answer this question Do you have trouble taking care of your child, family member or friend?: I choose not to answer this question Do you have trouble with day-to-day activities such as bathing, preparing meals, shopping, managing finances, etc.?: I choose not to answer this question Are you currently unemployed and looking for a job?: I choose not to answer this question Are you interested in more education?: I choose not to answer this question Please select the resources that you would like help with: None Currently or been in a relationship where the following occur: I choose not to answer THRIVE Score: 0 AUDIT C Alcohol Use Questionnaire (AUDIT-C) 1. How often do you have a drink containing alcohol?: Never Total Score: 0 Review of Systems Const Denies body aches, Denies daytime sleepiness, Denies difficulty sleeping, Denies fatigue, Denies fever(s), Denies headache(s), Reports snoring, Denies stops breathing during sleep and Denies weakness Eyes Details: goes to [facility] Denies change in vision ENT Denies vertigo, Denies dizziness, Denies headache(s), Denies nasal congestion and Denies disequilibrium Card Denies chest pain, Denies syncope, Denies irregular heart rhythm, Denies lightheadedness and Denies dyspnea Resp Denies chest congestion, Denies cough, Denies dyspnea, Reports snoring and Denies wheezing GI Denies change in bowel habits and Denies heartburn Denies hematuria, Denies urinary frequency, Denies nocturia, Denies nipple discharge, Denies dysuria, Denies urinary incontinence and Denies vaginal discharge Musc Reports no additional complaints Skin/Breast Details: Sees integrated Dermatology in [facility] Denies breast pain, Denies breast mass, Denies nipple discharge and Denies rash Neuro Denies vertigo, Denies dizziness, Denies syncope, Denies headache(s), Denies restless legs, Denies disequilibrium and Denies weakness Psych Reports no additional complaints Endo Denies fatigue, Denies polydipsia and Denies polyuria Garrett/Lymph Denies easy bruising Aller/Immun Denies seasonal rhinorrhea and Denies wheezing Physical exam (Primary Care) Vital Signs: Last Vital Signs Pulse 58 10/25/24 08:35 BP 98/70 10/25/24 08:35 Pulse Ox 98 10/25/24 08:35 Oxygen Delivery Method Room Air 10/25/24 08:35 BMI result Body Mass Index 30.5 Tobacco/Smoking Status: Tobacco use Status Tobacco use date assessed 10/25/24 10/25/24 08:38 Patient Tobacco Use Status Former Tobacco user 10/25/24 08:38 Tobacco use type Cigarette 10/25/24 08:38 e-Cigarette/Vaping Use Never Used 10/25/24 08:38 Thrive Assessment: Date of Thrive Assessment Date Thrive assessed 10/25/24 10/25/24 08:38 Currently or been in a relationship where the following occur: I choose not to answer Const General: comfortable, no acute distress, alert and awake Orientation/consciousness: patient oriented x3 HENMT Head: Yes normocephalic and Yes atraumatic Ears: hearing grossly normal bilaterally, external ears normal, TM's normal bilaterally and EAC's normal General nose exam: Normal external nose present Face and sinus: Yes sinuses nontender and Yes face symmetric Mouth: Normal oral and palatal mucosa present, oropharynx normal and moist mucous membranes Eyes General: appearance normal, both eyes and all related structures Eyelids: Yes eyelids normal Conjunctivae: conjunctivae normal Pupils: Equal, round and reactive pupils present EOM: EOMs intact bilaterally Neck Neck: Yes full ROM, Yes no lymphadenopathy, Yes trachea midline and Yes supple Thyroid: Thyroid normal Chest Breast/axilla palpation: normal palpation of the breasts Resp Auscultation: clear to auscultation bilaterally Cardio Rate: regular rate Rhythm: regular rhythm Heart sounds: S1 normal heart sound present and S2 normal heart sound present Bruits: no abdominal aortic bruits GI Palpation (GI): No Abdominal aortic bruit present, Soft to palpation, nontender, no guarding and no masses General: Yes deferred (Sees [facility], currently up-to-date Pap) Back/Spine/Pelvis Back: No back tenderness Skin General skin exam: no rashes or lesions noted Neuro General: patient oriented x3, gait normal, tone normal, moves all extremities, Normal light touch and pain sensation, no focal motor deficits, CN's II-XI intact bilaterally and normal sensation to monofilament Cranial nerves: Yes Equal, round and reactive pupils present Extrem General: Yes normal to inspection, Yes full ROM, Yes no joint enlargement, Yes no clubbing, cyanosis or edema, Yes no calf tenderness and Yes normal gait Psych Appearance: grossly normal Mental Status: mental status grossly normal Speech and movement: Normal speech and movement present Affect: normal affect Attitude: cooperative Thought process: Normal thought process present Thought content: Normal thought content present Results Reviewed Results Reviewed: Name: Joyce Alonso Age/Sex: 53/F : 1970 Unit#: [id number] Attend Dr: Kenzie Gonzalez MD Re10/28/24 Status: DEP REF Location: [facility] Disch: SPEC : [id number] CRISSY: 10/28/24 STATUS: COMP REQ : [id number] RECD: 10/28/[address]: Kenzie Gonzalez MD COMP: 10/28/24 ENTERED: 10/28/[address]: ORDERED: Glu Fasting, Lipid Panel, Vitamin D 25-OH, TSH Rflx Test Result Flag Reference FBS 84 60-99 mg/dL Triglyceride 93 <150 mg/dL Desirable Triglyceride: less than 150 mg/dL Borderline High Triglyceride 150-199 mg/dL High Triglyceride: 200-499 mg/dL Very High Triglyceride: greater than or equal to 5OO mg/dL Cholesterol 272 H <200 mg/dL Desirable Cholesterol: less than 200 mg/dL Borderline High Cholesterol: 200-239 mg/dL High Cholesterol: greater than 239 mg/dL LDL Calculated 184 H <100 mg/dL Desirable LDL: less than 100 mg/dL Near Optimal/Above Optimal LDL: 110-129 mg/dL Borderline High LDL: 130-159 mg/dL High LDL: 160-189 mg/dL Very High LDL: greater than or equal to 190 mg/dL HDL 70 >40 mg/dL Desirable HDL: greater than 40 mg/dL Note: This HDL assay may give artificially low results in patients with liver disease. Vit D 25-OH Tot 44.1 >30 ng/mL Health Based Reference Values* < 20 ng/mL Deficient 20-30 ng/mL Insufficient > 30 ng/mL Sufficient Coding Level of Care Code Est Pt Prev Care 40-64y(75583) Diagnoses Annual visit for general adult medical examination with abnormal findings Z00. Impacted cerumen of both ears H61.23 Immunization refused Z28.21 Uterine fibroid D25.9 Onychomycosis B35.1 Assessment & Plan Assessment & Plan (1) Annual visit for general adult medical examination with abnormal findings: Code(s): Z00.01 - Encounter for general adult medical examination with abnormal findings Plan: Will check appropriate labs. Continue regular dental visit every 6 months and regular eye exams. Take adequate calcium in diet and vitamin-D 3 at 2000 IU per cap once a day, in addition to weight-bearing exercises to help maintain good muscle tone and weight control. Instructed to do self-breast exam, and continue with yearly mammogram. Up-to-date with her cervical cancer screening. Declines all vaccines, colonoscopy screening up-to-date (2) Impacted cerumen of both ears: Code(s): H61.23 - Impacted cerumen, bilateral Category: Medical Plan: Successful removal of cerumen in both ears using lighted curette , patient tolerated procedure well (3) Immunization refused: Comment: Does not want to get flu or the COVID vaccine Code(s): Z28.21 - Immunization not carried out because of patient refusal Category: Medical Plan: Declines all vaccines followed by (4) Uterine fibroid: Comment: Followed at [facility] Code(s): D25.9 - Leiomyoma of uterus, unspecified Category: Medical Plan: Currently followed by [facility] (5) Onychomycosis: Code(s): B35.1 - Tinea unguium Category: Medical Plan: Patient declined referral to Podiatry but present time. Orders: Orders TSH reflex Free T4 10/28/24 R00.2 - Palpitations, Z00.01 - Encounter for general adult medical examination with abnormal findings, Z13.1 - Encounter for screening for diabetes mellitus, Z13.220 - Encounter for screening for lipoid disorders, Z78.0 - Asymptomatic menopausal state Glucose Fasting 10/28/24 R00.2 - Palpitations, Z00.01 - Encounter for general adult medical examination with abnormal findings, Z13.1 - Encounter for screening for diabetes mellitus, Z13.220 - Encounter for screening for lipoid disorders, Z78.0 - Asymptomatic menopausal state Lipid Panel 10/28/24 R00.2 - Palpitations, Z00.01 - Encounter for general adult medical examination with abnormal findings, Z13.1 - Encounter for screening for diabetes mellitus, Z13.220 - Encounter for screening for lipoid disorders, Z78.0 - Asymptomatic menopausal state Vitamin D 25-OH Total 10/28/24 R00.2 - Palpitations, Z00.01 - Encounter for general adult medical examination with abnormal findings, Z13.1 - Encounter for screening for diabetes mellitus, Z13.220 - Encounter for screening for lipoid disorders, Z78.0 - Asymptomatic menopausal state
--- OUTSIDE RECORDS SUMMARY | 2024-10-27 13:00 | XMS_ITS ---
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 Generated for Florian calvillo/Darien/eTransmitting on:?10/27/2024 01:00 PM EST
--- OUTSIDE RECORDS SUMMARY | 2024-10-27 13:00 | XMS_ITS ---
Author Organization [facility] Address [address] [place] [address] Care Team Providers Care Video Production Engineer Name Role Phone Lisa ROSALES, Kenzie Moise Primary Care Provider Un available Morgan Ramirez Unavailable [phone] Encounters Encounter Location Date Provider Diagnosis [facility] [address] [place] [address] 10/20/2023 Morgan Ramirez Plan Of Treatment No Information Progress Notes * Joyce DRIVERDOB:[birth year] (53 yo F)Acc No.[id number]:10/20/2023 Progress Note Patient:Joyce SINGLETON Provider:Liban Ramirez DPM :1970???Age:52 Y???Sex:Female D ate:10/20/2023 Address:[address] [place] [address] Marla Sellers [facility] Pcp:Ann Shirley Subjective: * Chief Complaints: * ??? * Medical History:? Objective: * Vitals:? Assessment: Plan: * Treatment: * Images: * The named appointment provid er may or may not be the originator of this progress note, and it is not deemed complete until electronically signed by the appointment provider. Sign off status: Pending * Provider:Liban Ramirez DPM Date:? 023 Generated for Printi ng/Faxing/eTransmitting on:?10/27/2024 12:59 PM EST
--- OUTSIDE RECORDS SUMMARY | 2024-10-27 13:00 | XMS_ITS | Patient Health Record ---
Author Organization [facility] [place] Address [address] [place] [address] Care Team Providers Care Algebra Teacher Name Role Phone Lisa ROSALES, Kenzie Moise Primary Care Provider Un available Morgan Ramirez Unavailable [phone] Allergies Allergen (clinical drug ingredient) Drug/Non Drug Allergy documented on EMR Reaction Allergy Type Onset Date Status MSG (uncoded) Unknown Allergy Inacti ve Reason For Referral No Information Medications Medication SIG (Take, Route, Frequency, Duration) Notes Start Date End Date Status Melatonin 5 MG 1 tablet at bedtime as needed Orally PRN Active Airborne Active Vitamin B Complex Ac tive Elderberry Active Vitamin B 12 Occasionally Acti ve Fish Oil Active Vitamin C Active Magnesium Active Quercetin Active Zinc Active Multi Vitamin PRN Active Vitamin D3 50 MCG (1999 UT) as directed Orally twice daily Active Diflucan 200 MG 1 tablet Orally once daily for 30 days Not-Taking Claritin 10 MG 1 tablet Orally PRN Active Collagen Active Social History Tobacco Use: Social History Observation Description Date Details (start date - stop date) Former Smoker NA - NA Tobacco Use/Smoking Question Answer Notes Are you a: former smoker Additional Findings: Tobacco Non-User Current no n-smoker Alcohol Screen Question Answer Notes Did you have a drink containing alcohol in the p ast year? No Points 0 Interpretation Negative Tobacco use other than smoking: Question Answer Notes Are you an other tobacco user? No Problems Problem Type SNOMED Code ICD Code Onset Dates Problem Status W/U Status Risk Notes Problem Acquired hallux valgus (16254104) Hallux valgus (acquired), left foot (M20.12) Active confirmed Problem Acquired hallux valgus (84964618) Hallux valgus (acquired), right foot (M20.11) Active confirmed Problem Acquired hammer toe of right foot (5202109852544 105) Other hammer toe(s) (acquired), right foot (M20.41) Active confirmed Problem Acquired hammer toe of left foot (1379185173348 103) Other hammer toe(s) (acquired), left foot (M20.42) Active confirmed Plan Of Treatment Pending Test Test Name Order Date *Liver Function Test (LFT) 08/23/2019 X ray : Foot, left 3V 02/22/2019 X ray : Foot, right 3V 02/22/2019 X ray : Foot, right 3V 08/07/2021 Insurance Providers Payer Name Payer Address Payer Phone Subscriber Number Group Number Insured Name Patient Relationship to Insured Coverage Start Date Coverage End Date [facility] [address] [place] [address] [id number] Joyce Alonso Self - patient is the insured Medical (General) History Medical History History ICD Code basal cell carcinoma Chicken pox Eczema Reflux ( GERD) Tachycardia Surgical History Surgery Date(Month/Year) basal cell Hospitalization History Reason Date(Month/Year) [facility], infected right great toe 07/2021
== END 2024-10-25 09:51 | disposition home or self-care (01) ==
PROVIDERS: Visit Provider Internal Medicine
DX: Z00.01 Encounter for general adult medical examination with abnormal findings (principal); H61.23 Impacted cerumen, bilateral; Z28.21 Immunization not carried out because of patient refusal; D25.9 Leiomyoma of uterus, unspecified; B35.1 Tinea unguium

== ENCOUNTER 2024-10-28 06:53 | Outpatient (REF) | payer BC, SELFPAY ==
--- OUTSIDE RECORDS SUMMARY | 2024-10-28 06:56 | XMS_ITS ---
Author Organization [facility] Address [address] [place] [address] Care Team Providers Care Post Tronic Machine Operator Name Role Phone Lisa ROSALES, Kenzie Moise Primary Care Provider Un available Morgan Ramirez Unavailable [phone] REASON FOR VISIT cx appt 10/20/23 Encounters Encounter Location Date Provider Diagnosis [facility] [address] [place] [address] 10/16/2023 Morgan Ramirez Plan Of Treatment No Information Progress Notes * Joyce DRIVERDOB:[birth year] (52 yo F)Acc No.[id number]:10/16/2023 Patient:?Juanpablo Driversa :1970???Age:52 Y???Sex:Female Address:[address] [place], [address] * true * Date:? Generated for Mechei rajinder/Darien/eTransmitting on:?10/28/2024 06:56 AM EST
--- OUTSIDE RECORDS SUMMARY | 2024-10-28 06:56 | XMS_ITS | Patient Health Record ---
Author Organization [facility] [place] Address [address] [facility] [place] [address] Care Team Providers Care Virtual Reality Specialist Name Role Phone Lisa ROSALES, Kenzie Moise Primary Care Provider Un available Morgan Ramirez Unavailable [phone] Allergies Allergen (clinical drug ingredient) Drug/Non Drug [...] Status Risk Notes Problem Acquired hallux valgus (65500350) Hallux valgus (acquired), left foot (M20.12) Active confirmed Problem Acquired hallux valgus (78027126) Hallux valgus (acquired), right foot (M20.11) Active confirmed Problem Acquired hammer toe of right foot (0263647470512 105) Other hammer toe(s) (acquired), right foot (M20.41) Active confirmed Problem Acquired hammer toe of left foot (2927400178166 103) Other hammer toe(s) (acquired), left foot [...] Coverage Start Date Coverage End Date Farzad [facility] [address] [place] [address] [id number] Joyce Alonso Self - patient is the insured Medical (General) History Medical History History ICD Code basal cell carcinoma Chicken pox Eczema Reflux ( GERD) Tachycardia Surgical History Surgery Date(Month/Year) basal cell Hospitalization History Reason Date(Month/Year) [facility] infected right [place] toe 07/2021
--- OUTSIDE RECORDS SUMMARY | 2024-10-28 06:56 | XMS_ITS ---
Author Organization [facility] Address [address] [place] [address] Care Team Providers Care Ear Mold Laboratory Technician Name Role Phone Lisa ROSALES, Kenzie Moise Primary Care Provider Un available Morgan Ramirez Unavailable [phone] Encounters Encounter Location Date Provider Diagnosis [facility] [address] [place] [address] 10/20/2023 Morgan Ramirez Plan Of Treatment No Information Progress Notes * Joyce DRIVERDOB:[birth year] (53 yo F)Acc No.[id number]:10/20/2023 Progress Note Patient:Joyce SINGLETON Provider:Liban Ramirez DPM :1970???Age:52 Y???Sex:Female D ate:10/20/2023 Address:[address] [place] [address] [facility] Pcp:Ann Shirley Subjective: * Chief Complaints: * [...] DPM Date:? 023 Generated for Printi ng/Faxing/eTransmitting on:?10/28/2024 06:55 AM EST
[2024-10-28 07:49] LABS: Cholesterol 272 mg/dL (<200); Glucose Fasting 84 mg/dL (60-99); HDL Cholesterol 70 mg/dL (>40); LDL Cholesterol Calculated 184 mg/dL (<100); Triglycerides 93 mg/dL (<150)
[2024-10-28 08:33] LABS: TSH reflex Free T4 1.95 uIU/mL (0.32-4.0); Vitamin D 25-OH Total 44.1 ng/mL (>30)
== END 2024-10-28 06:54 | disposition home or self-care (01) ==
LOC: HO.LAB 06:53
PROVIDERS: PCP Internal Medicine; Visit Provider Internal Medicine
DX: Z00.01 Encounter for general adult medical examination with abnormal findings (principal); Z13.220 Encounter for screening for lipoid disorders; Z13.1 Encounter for screening for diabetes mellitus; R00.2 Palpitations; Z78.0 Asymptomatic menopausal state
CPT/HCPCS: 36415; 80061; 82306; 82947; 84443

== ENCOUNTER 2025-07-05 14:26 | Outpatient (REF) | payer BC, SELFPAY ==
--- NOTE | ~2025-07-05 | MM_ITS ---
EXAMINATION: MM SCREENING DIGITAL BREAST TOMOSYNTHESIS, BILATERAL CLINICAL INFORMATION: Screening. Asymptomatic. COMPARISON: Mammography: Comparison is made with available priors TECHNIQUE: Digital breast mammography with tomosynthesis is performed in both the craniocaudal and mediolateral oblique views along with computer-aided detection (CAD). FINDINGS: The breasts are heterogeneously dense, which may obscure small masses (ACR BI-RADS breast composition Category c). There are no significant masses, abnormal calcifications, or other abnormalities. MM/MM tomosynthesis screening BI IMPRESSION: No mammographic evidence of malignancy. ASSESSMENT: BI-RADS BI-RADS 1 - Negative RECOMMENDATION: Routine annual mammography screening. 1 year F/U This examination should not preclude the clinical evaluation of a suspicious palpable abnormality. This patient's information was entered into a reminder system with a target due date for their next mammogram. Electronically signed by: Jesi Conteh DO 07/07/2025 11:24 AM EDT
--- OUTSIDE RECORDS SUMMARY | 2025-07-05 15:47 | XMS_ITS | Patient Health Record ---
Author Organization [facility] Address [address] [place] [address] Care Team Providers Care Button Tufter Name Role Phone Lisa ROSAELS, Kenzie Moise Primary Care Provider Un available Morgan Ramirez Unavailable [phone] Allergies Allergen (clinical drug ingredient) Drug/Non Drug [...] Diflucan 200 MG 1 tablet Orally once daily; Duration: 30 days Not-Taking Claritin 10 MG 1 [...] Status Risk Notes Problem Acquired hallux valgus (82443597) Hallux valgus (acquired), left foot (M20.12) Active confirmed Problem Acquired hallux valgus (59603166) Hallux valgus (acquired), right foot (M20.11) Active confirmed Problem Acquired hammer toe of right foot (6311440789746 105) Other hammer toe(s) (acquired), right foot (M20.41) Active confirmed Problem Acquired hammer toe of left foot (5065017490524 103) Other hammer toe(s) (acquired), left foot [...] Insured Coverage Start Date [facility]age End Date [facility] [address] [place] [address] [id number] Joyce Alonso Self - patient is the insured Medical (General) History Medical History History ICD Code basal cell carcinoma Chicken pox Eczema Reflux ( GERD) Tachycardia Surgical History Surgery Date(Month/Year) basal cell Hospitalization History Reason Date(Month/Year) [facility] 07/[place]
== END 2025-07-05 14:27 | disposition home or self-care (01) ==
LOC: HO.MAMMO 14:26
PROVIDERS: PCP Internal Medicine; Visit Provider Internal Medicine
DX: Z12.31 Encounter for screening mammogram for malignant neoplasm of breast (principal)
CPT/HCPCS: 77063; 77067

== ENCOUNTER → 2025-07-05 14:30 | Outpatient (BNV) | payer BC, SELFPAY | PROVIDERS: PCP Internal Medicine; Visit Provider Internal Medicine | DX: Z12.31 Encounter for screening mammogram for malignant neoplasm of breast (principal) | CPT/HCPCS: 77063; 77067 ==

== ENCOUNTER 2025-09-06 15:10 | Outpatient (AMB) | payer BC, SELFPAY ==
--- NOTE | 2025-09-06 15:14 | MHC.OFFVIS ---
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 Direct Service Provider concerns: none. Currently sexually active. Uses Replens. STI testing offered; she declines. Attempting to eat a healthy diet with calcium and vitamin D and stays active with exercise. Last pap smear; 2022, negative. Last mammogram; 2024. Colonoscopy is UTD. Denies any family history of breast, ovarian or colon cancer. [facility] Medical History Onychomycosis Hx of adenomatous colonic polyps Impacted cerumen of both ears History of basal cell carcinoma (BCC) Encounter for annual routine gynecological examination Dyslipidemia Immunization refused History of onychomycosis Tubular adenoma of colon Uterine fibroid Surgical History Hx of colonoscopy History of oral surgery Family History Father High cholesterol Myocardial infarction Mother Non-melanoma skin cancer High cholesterol Brother Schizophrenia Maternal Grandfather Myocardial infarction Daughter No problems noted. Daughter No problems noted. Daughter No problems noted. Unknown No problems noted. Social History Housing: House Alcohol intake: never Patient Tobacco Use Status: Former Tobacco user Tobacco use type: Cigarette Years Smoked: 8 e-Cigarette/Vaping Use: Never Used Second Hand Smoke Exposure: No service: No Current occupational status: employed Cognitive needs: No Hearing needs: No Vision needs: Yes Female Reproductive History Menstrual Total pregnancies: 6 Full term: 3 Number of Living Children: 3 Date of last pap smear: 02/17/23 (neg pap and hpv) Date of Mammogram: 07/05/25 (Birad 1) Review of Systems Const All systems reviewed & are unremarkable except as noted in HPI and below Reports as per HPI Eyes Reports no additional complaints ENT Reports no additional complaints Card Reports no additional complaints Resp Reports no additional complaints GI Reports as per HPI and Reports no additional complaints Reports as per HPI Musc Reports no additional complaints Skin/Breast Reports as per HPI Neuro Reports no additional complaints Psych Reports no additional complaints Endo Reports no additional complaints Garrett/Lymph Reports no additional complaints Aller/Immun Reports no additional complaints Physical Exam Vital Signs: Last Vital Signs BP 90/60 09/06/25 15:16 BMI result Body Mass Index 31.7 Const General: cooperative, healthy appearing, no acute distress, well developed and alert Orientation/consciousness: patient oriented x3 HEENT Head: Yes normal to inspection Eyes General: appearance normal, both eyes and all related structures Neck Neck: Yes normal visual inspection Thyroid: Thyroid normal Chest Chest palpation & inspection: normal inspection of the chest and other (no puckering, dimpling, peau de orange, retraction, discharge, masses) Breast/axilla inspection: normal inspection of the breasts Breast/axilla palpation: normal palpation of the breasts Resp Effort & Inspection: normal respiratory effort GI Inspection: Yes normal to inspection Palpation (GI): Soft to palpation Rectal Exam - Female: deferred General: Yes bladder normal to palpation External Female Exam: normal external appearance and normal appearance of the urethra Speculum Exam - Vagina: normal appearance of the vagina, normal palpation and normal vaginal discharge Speculum Exam - Cervix: normal appearance of the cervix and normal palpation Bimanual exam- vagina & uterus: normal bimanual exam, normal palpation, uterine size normal, bladder normal to palpation, normal palpation and non-tender Bimanual Exam- Adnexa, other: no masses Skin General skin exam: no rashes or lesions noted Rashes: no rashes Neuro General: patient oriented x3 Cognition (Neuro): normal cognition Extrem General: Yes normal to inspection Psych Attitude: cooperative Thought process: Normal thought process present Assessment & Plan Assessment & Plan (1) Encounter for well woman exam with routine gynecological exam: Code(s): Z01.419 - Encounter for gynecological examination (general) (routine) without abnormal findings Category: Medical Plan Discussed: Current recommendations for pap smears per ASCCP guidelines. Breast awareness, periodic self breast exams and yearly mammogram. Maintain a healthy lifestyle, well balanced diet including Calcium 1,200 mg and Vitamin D 600 IU daily, and routine exercise. Contact the office with any postmenopausal bleeding. Patient verbalizes understanding and agrees to the plan of care. She was given opportunity to ask questions and all questions were answered to the best of my ability. RTO in 1 year for annual stallion manager exam. This note is constructed using voice recognition software. While every effort has been made to ensure accuracy, stallion manager errors may have been included. Coding Level of Care Code Est Pt Prev Care 40-64y(75991) Diagnoses Encounter for well woman exam with routine gynecological exam Z01.419
[2025-09-06 15:16] VITALS: BP 90/60; BMI 31.7
--- OUTSIDE RECORDS SUMMARY | 2025-09-06 20:22 | XMS_ITS | Patient Health Record ---
Author Organization [facility] Address [address] [place] [address] Care Team Providers Care Ethics Manager Name Role Phone Lisa ROSALES, Kenzie Moise Primary Care Provider Un available Morgan Cortes Unavailable [phone] Allergies Allergen (clinical drug ingredient) Drug/Non Drug [...] Status Risk Notes Problem Acquired hallux valgus (44807158) Hallux valgus (acquired), left foot (M20.12) Active confirmed Problem Acquired hallux valgus (17065972) Hallux valgus (acquired), right foot (M20.11) Active confirmed Problem Acquired hammer toe of right foot ([id number] 105) Other hammer toe(s) (acquired), right foot (M20.41) Active confirmed Problem Acquired hammer toe of left foot ([id number] 103) Other hammer toe(s) (acquired), left foot [...] Coverage Start Date Coverage End Date [facility] [address] [place] [address] [id number] Joyce Alonso Self - patient is the insured Medical (General) History Medical History History ICD Code basal cell carcinoma Chicken pox Eczema Reflux ( GERD) Tachycardia Surgical History Surgery Date(Month/Year) basal cell Hospitalization History Reason Date(Month/Year) [facility] [place] [facility], infected right great toe 07/2021
== END 2025-09-06 15:57 | disposition home or self-care (01) ==
LOC: HO.HWS 15:10
PROVIDERS: PCP Internal Medicine; Visit Provider Advanced Practice Midwife
DX: Z01.419 Encounter for gynecological examination (general) (routine) without abnormal findings (principal)
CPT/HCPCS: 99396; 99459

== ENCOUNTER 2025-10-04 13:02 | Outpatient (AMB) | payer BC, SELFPAY ==
[2025-10-04 13:05] VITALS: BP 112/78; PULSE 69; TEMP 36.6; O2SAT 98; BMI 30.5
--- NOTE | 2025-10-04 13:05 | MHC.OFFWIV ---
Intake Vital Signs 10/04/25 13:05 Height 5 ft 3 in Weight 172 lb BMI 30.5 BP 112/78 Blood Pressure Location Lt brachial Position Sitting Pulse 69 Pulse Source Pulse Oximeter Temp 97.9 F Temp Source Oral Pulse Oximetry (%) 98 Oxygen Delivery Method Room Air Intake Visit Reasons: EP-?rt foot infection Intake Note: Patient presents c/o right foot pain, swelling, redness ? infection x1 week Patient Tobacco Use Status: Former Tobacco user Allergies raw peas Allergy (Mild, Uncoded 10/04/25 13:11) Hives Do you need a note to return to daycare/school/sports/work: No HPI HPI Comments History of Present Illness Details History of Present Illness - The patient is a 54-year-old female presenting with a possible foot infection - The foot issue began approximately one week ago, with the patient noticing pain and swelling after wearing sneakers at the gym. - Symptoms include pain, swelling, warmth, and redness, with no associated fever. - The patient suspects a possible inciting event of dropping an object on the foot, leading to a break in the skin. - The patient has a history of recurrent foot infections, with two prior episodes in the past two years, one requiring intravenous antibiotics during a hospital visit. - The patient has been advised by a barrel assembler to consider vascular evaluation due to fluid retention in the affected foot. - The patient denies any history of MRSA infections and has no known diabetes, with recent fasting glucose levels within normal range. [facility] Medical History Onychomycosis Hx of adenomatous colonic polyps Impacted cerumen of both ears History of basal cell carcinoma (BCC) Encounter for annual routine gynecological examination Dyslipidemia Immunization refused History of onychomycosis Tubular adenoma of colon Uterine fibroid Surgical History Hx of colonoscopy History of oral surgery Family History Father High cholesterol Myocardial infarction Mother Non-melanoma skin cancer High cholesterol Brother Schizophrenia Maternal Grandfather Myocardial infarction Daughter No problems noted. Daughter No problems noted. Daughter No problems noted. Unknown No problems noted. Social History Housing: House Alcohol intake: never Patient Tobacco Use Status: Former Tobacco user Tobacco use type: Cigarette Years Smoked: 8 e-Cigarette/Vaping Use: Never Used Second Hand Smoke Exposure: No service: No Current occupational status: employed Cognitive needs: No Hearing needs: No Vision needs: Yes Review of Systems Narrative Review of Systems - General: Denies fever. - Musculoskeletal: Reports pain, swelling, and warmth in the right foot. - Integumentary: Reports redness and warmth in the right foot. - Endocrine: Denies history of diabetes. All systems reviewed and are unremarkable except as noted in HPI Physical Exam Exam Exam: Physical Exam General: Cooperative, healthy appearing, comfortable, no acute distress and well developed Orientation: Patient oriented x3 Limitations: No limitations Head: Normal to inspection Ears: Hearing grossly normal bilaterally Nose: Normal External nose present Face and sinus: Normal facial exam Eyes: Appearance normal, both eyes and all related structures Neck: Normal visual inspection and Yes full ROM Respiratory: Normal respiratory effort and able to speak in complete sentences. Skin: Warmth and flat erythematous area noted on the dorsal right foot, no TTP of entire right foot and toes, full ROM right foot and toes. Neuro: Patient oriented x3 Extremities: as above, Normal to inspection otherwise. Vital Signs: Last Vital Signs Temp 97.9 F 10/04/25 13:05 Pulse 69 10/04/25 13:05 BP 112/78 10/04/25 13:05 Pulse Ox 98 10/04/25 13:05 Oxygen Delivery Method Room Air 10/04/25 13:05 BMI result Body Mass Index 30.5 Assessment & Plan Assessment & Plan (1) Cellulitis of foot, right: Code(s): L03.115 - Cellulitis of right lower limb Plan: Patient was informed and verbally consented to the use of an ambient scribe for clinic note documentation during this visit. - Initiate treatment with Keflex, 500 mg every 6 hours for 7 days. - Monitor for improvement; if symptoms worsen or do not improve by mid-treatment, consider switching to doxycycline however she has no history of MRSA so will prescribe one antibiotic for now. - Discuss with primary care physician at annual appt in November if recurrent infections persist for further evaluation and management. Medications: New cephalexin 500 mg PO Q6H 28 caps 0RF Coding Level of Care Code Est Pt Level 3 (23416) Diagnoses Cellulitis of foot, right L03.115
== END 2025-10-04 13:45 | disposition home or self-care (01) ==
PROVIDERS: PCP Internal Medicine; Visit Provider Physician Assistant
DX: L03.115 Cellulitis of right lower limb (principal)

== ENCOUNTER 2025-10-06 15:55 | Outpatient (REF) | payer BC, SELFPAY ==
--- NOTE | ~2025-10-06 | XR_ITS ---
EXAMINATION: XR FOOT, RIGHT CLINICAL INFORMATION: M79.89 - Other specified soft tissue disorders COMPARISON: Previous x-ray May and July 2021 TECHNIQUE: AP, lateral, and oblique views of the right foot. FINDINGS: Mild hallux valgus deformity at the first MTP joint. Bone alignment is otherwise normal. No acute fracture or dislocation. Mild degenerative changes at the first MTP joint with small osteophyte and soft medial adjacent soft tissue swelling. Well-corticated ossification seen on the lateral view overlying the dorsal metatarsal tarsal joints unchanged from prior exams. This may be related to old trauma. Stable appearance to sesamoid bones adjacent to the first metatarsal head and accessory peroneal ossicle. XR/XR foot RT min 3V IMPRESSION: No acute fracture or dislocation. Mild hallux valgus deformity, degenerative change and soft tissue swelling adjacent to the first MTP joint. Electronically signed by: Jessica Garcia MD 10/06/2025 05:07 PM [facility]
== END 2025-10-06 15:56 | disposition home or self-care (01) ==
LOC: HO.HMGCX 15:55
PROVIDERS: PCP Internal Medicine; Visit Provider Nurse Practitioner Family
DX: M79.89 Other specified soft tissue disorders (principal)
CPT/HCPCS: 73630

== ENCOUNTER 2025-10-06 15:55 | Outpatient (AMB) | payer BC, SELFPAY ==
[2025-10-06 16:08] VITALS: BP 100/60; PULSE 74; TEMP 36.6; O2SAT 96; BMI 30.5
--- NOTE | 2025-10-06 16:08 | AM.OFFWIN_ITS ---
Intake Vital Signs 10/06/25 16:08 Height 5 ft 3 in Weight 172 lb BMI 30.5 BP 100/60 Blood Pressure Location Rt brachial Position Sitting Pulse 74 Pulse Source Pulse Oximeter Temp 97.9 F Temp Source Oral Pulse Oximetry (%) 96 Oxygen Delivery Method Room Air Intake Visit Reasons: EP pain in right foot Intake Note: pt presents with right foot pain - recalls dropping something on her foot over the last couple weeks as well as hitting the area on different objects occassionally Patient Tobacco Use Status: Former Tobacco user Allergies raw peas Allergy (Mild, Uncoded 10/06/25 16:10) Hives Do you need a note to return to daycare/school/sports/work: No HPI HPI Comments History of Present Illness Details 54 y/o female presents to the [facility] with persistent right foot pain and swelling for 1 week. She was evaluated on 10/04 and diagnosed with cellulitis; started on Keflex 500 mg TID x 7 days. Reports minimal improvement. Continues to have pain, swelling, and redness. States she may have dropped an object on the foot prior to onset, causing a small break in the skin. Denies fever, chills, numbness, tingling, or drainage. Concerned about possible fracture and requests imaging. [facility] Medical History (Updated 10/06/25 @ 16:27 by Mari Bergeron NP) Swelling of right foot Onychomycosis Hx of adenomatous colonic polyps Impacted cerumen of both ears History of basal cell carcinoma (BCC) Encounter for annual routine gynecological examination Dyslipidemia Immunization refused History of onychomycosis Tubular adenoma of colon Uterine fibroid Surgical History Hx of colonoscopy History of oral surgery Family History Father High cholesterol Myocardial infarction Mother Non-melanoma skin cancer High cholesterol Brother Schizophrenia Maternal Grandfather Myocardial infarction Daughter No problems noted. Daughter No problems noted. Daughter No problems noted. Unknown No problems noted. Social History Housing: House Alcohol intake: never Patient Tobacco Use Status: Former Tobacco user Tobacco use type: Cigarette Years Smoked: 8 e-Cigarette/Vaping Use: Never Used Second Hand Smoke Exposure: No service: No Current occupational status: employed Cognitive needs: No Hearing needs: No Vision needs: Yes Review of Systems Const All systems reviewed & are unremarkable except as noted in HPI and below Physical Exam Vital Signs: Last Vital Signs Temp 97.9 F 10/06/25 16:08 Pulse 74 10/06/25 16:08 BP 100/60 10/06/25 16:08 Pulse Ox 96 10/06/25 16:08 Oxygen Delivery Method Room Air 10/06/25 16:08 BMI result Body Mass Index 30.5 Const General: no acute distress Orientation/consciousness: patient oriented x3 Neuro General: patient oriented x3, gait normal and moves all extremities Extrem Other: Right Foot: Swelling present over dorsal aspect, Erythema localized, no str eaking, Warm to touch, Tenderness to palpation. No fluctuance or open wound noted. Cap refill < 2 seconds; distal pulses intact Full ROM limited by pain. Psych Speech and movement: Normal speech and movement present Assessment & Plan Assessment & Plan (1) Swelling of right foot: Code(s): M79.89 - Other specified soft tissue disorders Plan: Ordered right foot X-ray to evaluate for fracture or foreign body. Continue on Keflex as Prescribed Elevate foot, warm compresses, avoid prolonged standing/walking. OTC analgesics (acetaminophen or NSAIDs). Worsening redness, fever, spreading streaks, inability to bear weight, or systemic symptoms. Coding Level of Care Code Est Pt Level 4 (62283) Diagnoses Swelling of right foot M79.89 Time Spent (min) 20
--- OUTSIDE RECORDS SUMMARY | 2025-10-06 20:49 | XMS_ITS | Patient Health Record ---
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 Name Role Phone Lisa ROSALES, Kenzie Moise Primary Care Provider Un available Morgan Cortes Unavailable [phone] Allergies Allergen (clinical drug ingredient) Drug/Non Drug [...] Status Risk Notes Problem Acquired hallux valgus (60221808) Hallux valgus (acquired), left foot (M20.12) Active confirmed Problem Acquired hallux valgus (25720820) Hallux valgus (acquired), right foot (M20.11) Active confirmed Problem Acquired hammer toe of right foot (0899541204964 105) Other hammer toe(s) (acquired), right foot (M20.41) Active confirmed Problem Acquired hammer toe of left foot ([id number] 103) Other hammer toe(s) (acquired), left foot [...] Coverage Start Date Coverage End Date [facility]ad [facility] [address] [place] [address] [id number] Joyce Alonso Self - patient is the insured Medical (General) History Medical History History ICD Code basal cell carcinoma Chicken pox Eczema Reflux ( GERD) Tachycardia Surgical History Surgery Date(Month/Year) basal cell Hospitalization History Reason Date(Month/Year) [facility] [place] [facility], infected right great toe 07/2021
== END 2025-10-06 16:32 | disposition home or self-care (01) ==
PROVIDERS: PCP Internal Medicine; Visit Provider Nurse Practitioner Family
DX: M79.89 Other specified soft tissue disorders (principal)

== ENCOUNTER → 2025-10-06 16:32 | Outpatient (BNV) | payer BC, SELFPAY | PROVIDERS: PCP Internal Medicine; Visit Provider Radiology Diagnostic Radiology | DX: M20.11 Hallux valgus (acquired), right foot (principal); M19.071 Primary osteoarthritis, right ankle and foot; M79.89 Other specified soft tissue disorders | CPT/HCPCS: 73630 ==